=== PATIENT | male | born 1975 | race African-American/Black ===

== ENCOUNTER 2019-03-17 07:46 | Observation (INO) | payer SELFPAY ==
[2019-03-17] MEDS ORDERED: ENOXAPARIN 100 MG/ML SYR SQ ONE (08:30)
[2019-03-17] MEDS ORDERED: ASPIRIN 81 MG CHEWABLE TABLET ONE (08:30)
[2019-03-17] MEDS ORDERED: FAMOTIDINE 20 MG/2 ML VIAL IV ONE (08:30)
[2019-03-17] MEDS ORDERED: NA CHLORIDE 0.9% 1,000 ML ONE (08:30)
[2019-03-17] MEDS ORDERED: LISINOPRIL 20 MG TAB ONE (08:30)
--- NOTE | 2019-03-17 08:34 | EDPHYS ---
Physician Documentation [facility] Name: Weston Arce Age: 43 yrs Sex: Male : 1975 Arrival Date: 03/17/2019 Time: 07:47 Bed 13 Private MD: ED Physician Ander Casillas HPI: 03/17 08:25 This 43 yrs old Black Male presents to ER via Ambulatory with complaints of Chest Pain. raghu 08:25 The patient or guardian reports chest pain that is located primarily in the anterior raghu chest wall, left. Onset: 2 day(s) ago. The pain does not radiate. Associated signs and symptoms: Pertinent positives: shortness of breath. The chest pain is described as a pressure. Severity of pain: At its worst the pain was mild in the emergency department the pain has resolved. The patient has experienced similar episodes in the past, several times. Historical: - Allergies: 08:05 SHELLFISH; jl7 - Home Meds: 08:05 None [Active]; jl7 - PMHx: 08:05 Hypertension; jl7 - Immunization history:: Adult Immunizations not up to date. - Social history:: Smoking status: Patient uses tobacco products, cigars, Patient uses alcohol, on a daily basis. 3-[address], marijuana. - Ebola Screening: : No symptoms or risks identified at this time. - Family history:: not pertinent. ROS: 08:25 Constitutional: Negative for fever, chills, and weight loss, Eyes: Negative for injury, raghu pain, redness, and discharge, ENT: Negative for injury, pain, and discharge, Neck: Negative for injury, pain, and swelling, Abdomen/GI: Negative for abdominal pain, nausea, vomiting, diarrhea, and constipation, Back: Negative for injury and pain, : Negative for injury, bleeding, discharge, and swelling, MS/Extremity: Negative for injury and deformity, Skin: Negative for injury, rash, and discoloration, Neuro: Negative for headache, weakness, numbness, tingling, and seizure, Psych: Negative for depression, anxiety, suicide ideation, homicidal ideation, and hallucinations, Allergy/Immunology: Negative for hives, rash, and allergies, Endocrine: Negative for neck swelling, polydipsia, polyuria, polyphagia, and marked weight changes, Hematologic/Lymphatic: Negative for swollen nodes, abnormal bleeding, and unusual bruising. 08:25 Cardiovascular: Positive for chest pain. 08:25 Respiratory: Positive for shortness of breath, on exertion. Exam: 08:25 Constitutional: This is a well developed, well nourished patient who is awake, alert, raghu and in no acute distress. Head/Face: Normocephalic, atraumatic. Eyes: Pupils equal round and reactive to light, extra-ocular motions intact. Lids and lashes normal. Conjunctiva and sclera are non-icteric and not injected. Cornea within normal limits. Periorbital areas with no swelling, redness, or edema. ENT: Nares patent. No nasal discharge, no septal abnormalities noted. Tympanic membranes are normal and external auditory canals are clear. Oropharynx with no redness, swelling, or masses, exudates, or evidence of obstruction, uvula midline. Mucous membranes moist. Neck: Trachea midline, no thyromegaly or masses palpated, and no cervical lymphadenopathy. Supple, full range of motion without nuchal rigidity, or vertebral point tenderness. No Meningismus. Chest/axilla: Normal chest wall appearance and motion. Nontender with no deformity. No lesions are appreciated. Cardiovascular: Regular rate and rhythm with a normal S1 and S2. No gallops, murmurs, or rubs. Normal PMI, no JVD. No pulse deficits. Respiratory: Lungs have equal breath sounds bilaterally, clear to auscultation and percussion. No rales, rhonchi or wheezes noted. No increased work of breathing, no retractions or nasal flaring. Abdomen/GI: Soft, non-tender, with normal bowel sounds. No distension or tympany. No guarding or rebound. No evidence of tenderness throughout. Back: No spinal tenderness. No costovertebral tenderness. Full range of motion. Male : Normal genitalia with no discharge or lesions. Skin: Warm, dry with normal turgor. Normal color with no rashes, no lesions, and no evidence of cellulitis. MS/ Extremity: Pulses equal, no cyanosis. Neurovascular intact. Full, normal range of motion. Neuro: Awake and alert, GCS 15, oriented to person, place, time, and situation. Cranial nerves II-XII grossly intact. Motor strength 5/5 in all extremities. Sensory grossly intact. Cerebellar exam normal. Normal gait. Psych: Awake, alert, with orientation to person, place and time. Behavior, mood, and affect are within normal limits. Vital Signs: 07:50 BP 177 / 105; Pulse 52; Resp 17 S; Pulse Ox 100% on R/A; Pain 0/10; jl7 08:15 BP 164 / 94; Pulse 50; Resp 15 S; Pulse Ox 100% on R/A; jl7 08:26 Weight 98.88 kg (M); jl7 09:00 BP 153 / 88; Pulse 46; Resp 16 S; Pulse Ox 100% on R/A; jl7 10:12 BP 133 / 83; Pulse 48; Resp 16 S; Pulse Ox 100% on R/A; jl7 11:00 BP 128 / 85; Pulse 47; Resp 16 S; Pulse Ox 100% on R/A; jl7 11:45 BP 140 / 94; Pulse 44; Resp 16 S; Pulse Ox 100% on R/A; jl7 12:46 BP 156 / 97; Pulse 50; Resp 16 S; Pulse Ox 100% on R/A; jl7 MDM: 07:50 Patient medically screened. [facility] 08:29 Data reviewed: vital signs, nurses notes, lab test result(s), EKG, radiologic studies, raghu plain films. 03/17 08:02 Order name: Basic Metabolic Panel; Complete Time: 09:54 [facility] 03/17 08:02 Order name: CBC with Diff raghu 03/17 08:02 Order name: LFT's; Complete Time: 09:54 [facility] 03/17 08:02 Order name: Magnesium; Complete Time: 09:54 [facility] 03/17 08:02 Order name: NT PRO-BNP; Complete Time: 09:54 [facility] 03/17 08:02 Order name: PT-INR; Complete Time: 09:35 [facility] 03/17 08:02 Order name: Troponin (emerg Dept Use Only); Complete Time: 09:54 [facility] 03/17 08:02 Order name: XRAY Chest (1 view); Complete Time: 09:35 [facility] 03/17 08:20 Order name: Lipase; Complete Time: 09:40 [facility] 03/17 08:02 Order name: EKG; Complete Time: 08:04 [facility] 03/17 08:02 Order name: Cardiac monitoring; Complete Time: 08:05 [facility] 03/17 08:02 Order name: EKG - Nurse/Tech; Complete Time: 08:04 raghu 03/17 08:02 Order name: IV Saline Lock; Complete Time: 08:21 raghu 03/17 08:02 Order name: Labs collected and sent; Complete Time: 08:21 raghu 03/17 08:02 Order name: O2 Per Protocol; Complete Time: 08:05 raghu 03/17 08:02 Order name: O2 Sat Monitoring; Complete Time: 08:05 raghu 03/17 09:01 Order name: Labs - recollect needed; Complete Time: 09:12 03/17 11:39 Order name: Diet Heart Healthy; Complete Time: 11:39 jl7 Administered Medications: 08:35 Drug: NS 0.9% 1000 ml Route: IV; Rate: 125 ml/hr; Site: right antecubital; jl7 13:39 Follow up: IV Status: Infusion continued upon admission jl7 08:41 Drug: Pepcid 20 mg Route: IVP; Site: right antecubital; jl7 09:12 Follow up: Response: No adverse reaction jl7 08:43 Not Given (Pt took 325 mg prior to arrival): Aspirin Chewable Tablet 324 mg PO once; 81 jl7 mg tablets x 4 08:43 Drug: Lisinopril 20 mg Route: PO; jl7 09:14 Follow up: Response: No adverse reaction jl7 08:43 Drug: Lovenox 1 mg/kg Route: Sub-Q; Site: abdomen; jl7 09:13 Follow up: Response: No adverse reaction jl7 09:35 Drug: Maxzide (37.5 mg-25 mg) 1 caps Route: PO; jl7 10:12 Follow up: Response: No adverse reaction jl7 Disposition: 03/17/19 08:33 Hospitalization ordered by Amol Gunn for Observation. Preliminary diagnosis are Essential (primary) hypertension, Chest pain, unspecified, Cardiomegaly, Bradycardia, unspecified. - Bed requested for Telemetry/MedSurg (observation). - Status is Observation. jl7 - Condition is Stable. - Problem is new. - Symptoms have improved. UTI on Admission? No Signatures: Dispatcher [employer] EDAnder Durbin MD MD cha Leal, Jahala RN RN jl7 Radha Almaraz gm Corrections: (The following items were deleted from the chart) 08:36 08:33 Hospitalization Ordered by Keanu Marin MD for Observation. Preliminary diagnosis raghu is Essential (primary) hypertension; Chest pain, unspecified. Bed requested for Telemetry/MedSurg (observation). Status is Observation. Condition is Stable. Problem is new. Symptoms have improved. UTI on Admission? No. raghu 08:37 08:36 03/17/2019 08:33 Hospitalization Ordered by Keanu Marin MD for Observation. raghu Preliminary diagnosis is Essential (primary) hypertension; Chest pain, unspecified; Cardiomegaly. Bed requested for Telemetry/MedSurg (observation). Status is Observation. Condition is Stable. Problem is new. Symptoms have improved. UTI on Admission? No. [facility] 08:46 08:37 03/17/2019 08:33 Hospitalization Ordered by Keanu Marin MD for Observation. raghu Preliminary diagnosis is Essential (primary) hypertension; Chest pain, unspecified; Cardiomegaly; Bradycardia, unspecified. Bed requested for Telemetry/MedSurg (observation). Status is Observation. Condition is Stable. Problem is new. Symptoms have improved. UTI on Admission? No. raghu 12:38 08:46 03/17/2019 08:33 Hospitalization Ordered by Amol Gunn for Observation. Preliminary diagnosis is Essential (primary) hypertension; Chest pain, unspecified; Cardiomegaly; Bradycardia, unspecified. Bed requested for Telemetry/MedSurg (observation). Status is Observation. Condition is Stable. Problem is new. Symptoms have improved. UTI on Admission? No. raghu 13:40 12:38 03/17/2019 08:33 Hospitalization Ordered by Amol Gunn for Observation. jl7 Preliminary diagnosis is Essential (primary) hypertension; Chest pain, unspecified; Cardiomegaly; Bradycardia, unspecified. Bed requested for Telemetry/MedSurg (observation). Status is Observation. Condition is Stable. Problem is new. Symptoms have improved. UTI on Admission? No. gm
--- NOTE | 2019-03-17 08:34 | ER ---
Nurse's Notes [facility] Name: Weston Arce Age: 43 yrs Sex: Male : 1975 Arrival Date: 03/17/2019 Time: 07:47 Bed 13 Private MD: Diagnosis: Essential (primary) hypertension;Chest pain, unspecified;Cardiomegaly;Bradycardia, unspecified Presentation: 03/17 08:01 Presenting complaint: Patient states: Intermittent chest pressure/cramping for the past jl7 2 months, SOB this morning, denies nausea. Transition of care: patient was not received from another setting of care. Onset of symptoms was March 17, 2019. Risk Assessment: Do you want to hurt yourself or someone else? Patient reports no desire to harm self or others. Initial Sepsis Screen: Does the patient meet any 2 criteria? No. Patient's initial sepsis screen is negative. Does the patient have a suspected source of infection? No. Patient's initial sepsis screen is negative. Care prior to arrival: None. 08:01 Method Of Arrival: Ambulatory jl7 08:01 Acuity: GISSELLE 3 jl7 Triage Assessment: 08:05 General: Appears in no apparent distress. uncomfortable, Behavior is calm, cooperative, jl7 appropriate for age. Pain: Complains of pain in left breast Pain does not radiate. Pain currently is 0 out of 10 on a pain scale. at worst was 7 out of 10 on a pain scale. Quality of pain is described as crampy, pressure, Pain began 2 months ago. Neuro: Level of Consciousness is awake, alert, obeys commands, Oriented to person, place, time, situation. Cardiovascular: Patient's skin is warm and dry. Rhythm is sinus bradycardia. Respiratory: Airway is patent Respiratory effort is even, unlabored, Respiratory pattern is regular, symmetrical. Derm: Skin is dry, Skin is normal, Skin temperature is warm. Musculoskeletal: No signs and/or symptoms reported regarding the musculoskeletal system. Historical: - Allergies: 08:05 SHELLFISH; jl7 - Home Meds: 08:05 None [Active]; jl7 - PMHx: 08:05 Hypertension; jl7 - Immunization history:: Adult Immunizations not up to date. - Social history:: Smoking status: Patient uses tobacco products, cigars, Patient uses alcohol, on a daily basis. 3-[address], marijuana. - Ebola Screening: : No symptoms or risks identified at this time. - Family history:: not pertinent. Screenin:08 Abuse screen: Denies threats or abuse. Denies injuries from another. Nutritional jl screening: No deficits noted. Tuberculosis screening: No symptoms or risk factors identified. Fall Risk IV access (20 points). Total Herrera Fall Scale indicates No Risk (0-24 pts). Assessment: 08:00 General: See triage assessment. [facility] 08:08 Reassessment: Dr. Casillas at bedside. jl7 09:00 Reassessment: Patient appears in no apparent distress at this time. No changes from [facility] previously documented assessment. Patient and/or family updated on plan of care and expected duration. Pain level reassessed. Patient is alert, oriented x 3, equal unlabored respirations, skin warm/dry/pink. 10:00 Reassessment: Patient appears in no apparent distress at this time. Patient and/or jl7 family updated on plan of care and expected duration. Pain level reassessed. Patient is alert, oriented x 3, equal unlabored respirations, skin warm/dry/pink. 11:00 Reassessment: Patient appears in no apparent distress at this time. Patient and/or jl7 family updated on plan of care and expected duration. Pain level reassessed. Patient is alert, oriented x 3, equal unlabored respirations, skin warm/dry/pink. Patient denies pain at this time. 11:41 Reassessment: Diet tray ordered. jl7 12:30 Reassessment: Patient appears in no apparent distress at this time. Patient and/or jl7 family updated on plan of care and expected duration. Pain level reassessed. Patient is alert, oriented x 3, equal unlabored respirations, skin warm/dry/pink. 12:58 Reassessment: attempted to call report, nurse unavailable. jl7 Vital Signs: 07:50 BP 177 / 105; Pulse 52; Resp 17 S; Pulse Ox 100% on R/A; Pain 0/10; 7 08:15 BP 164 / 94; Pulse 50; Resp 15 S; Pulse Ox 100% on R/A; jl7 08:26 Weight 98.88 kg (M); jl7 09:00 BP 153 / 88; Pulse 46; Resp 16 S; Pulse Ox 100% on R/A; jl7 10:12 BP 133 / 83; Pulse 48; Resp 16 S; Pulse Ox 100% on R/A; jl7 11:00 BP 128 / 85; Pulse 47; Resp 16 S; Pulse Ox 100% on R/A; jl7 11:45 BP 140 / 94; Pulse 44; Resp 16 S; Pulse Ox 100% on R/A; jl7 12:46 BP 156 / 97; Pulse 50; Resp 16 S; Pulse Ox 100% on R/A; jl7 ED Course: 07:47 Patient arrived in ED. as 07:49 Garrett Sanford, KARI is Primary Nurse. jl7 07:50 Ander Casillas MD is Attending Physician. raghu 07:50 Arm band placed on right wrist. jl7 08:00 EKG done, by ED staff, reviewed by Ander Casillas MD. dh3 08:04 Triage completed. jl7 08:08 Patient maintains SpO2 saturation greater than 95% on room air. jl7 08:08 Patient has correct armband on for positive identification. Placed in gown. Bed in low jl7 position. Call light in reach. Side rails up X 1. night monitor on. Pulse ox on. NIBP on. Warm blanket given. 08:15 Initial lab(s) drawn, by sc, sent to lab. Missed attempt(s): 20 gauge in right forearm. dh3 Bleeding controlled, band aid applied, catheter tip intact. 08:17 Inserted saline lock: 20 gauge in right antecubital area, using aseptic technique. dh3 08:32 Keanu Marin MD is Hospitalizing Provider. raghu 08:36 XRAY Chest (1 view) In Process Unspecified. EDMS 08:44 Hospitalizing Provider role handed off by Keanu Marin MD raghu 08:44 Amol Gunn is Hospitalizing Provider. raghu 13:39 No provider procedures requiring assistance completed. Patient admitted, IV remains in jl7 place. intact, No redness/swelling at site. Administered Medications: 08:35 Drug: NS 0.9% 1000 ml Route: IV; Rate: 125 ml/hr; Site: right antecubital; jl7 13:39 Follow up: IV Status: Infusion continued upon admission jl7 08:41 Drug: Pepcid 20 mg Route: IVP; Site: right antecubital; jl7 09:12 Follow up: Response: No adverse reaction jl7 08:43 Not Given (Pt took 325 mg prior to arrival): Aspirin Chewable Tablet 324 mg PO once; 81 jl7 mg tablets x 4 08:43 Drug: Lisinopril 20 mg Route: PO; jl7 09:14 Follow up: Response: No adverse reaction jl7 08:43 Drug: Lovenox 1 mg/kg Route: Sub-Q; Site: abdomen; jl7 09:13 Follow up: Response: No adverse reaction jl7 09:35 Drug: Maxzide (37.5 mg-25 mg) 1 caps Route: PO; jl7 10:12 Follow up: Response: No adverse reaction jl7 Outcome: 08:33 Decision to Hospitalize by Provider. raghu 13:39 Admitted to Tele accompanied by tech, family with patient, via wheelchair, room 212, jl7 with chart, Report called to KARI Rojas 13:39 Condition: stable 13:39 Discharge instructions given to patient, family, Instructed on the need for admit, Demonstrated understanding of instructions. 13:40 Patient left the ED. jl7 Signatures: Dispatcher [employer] EDAnder Durbin MD MD cha Martinez, Amelia as Leal, Jahala RN RN jl7 Leatha Newton 3
--- NOTE | 2019-03-17 08:52 | RAD REPORT ---
EXAM DESCRIPTION: RAD - Chest Single View - 03/17/2019 8:35 am CLINICAL HISTORY: COUGH Chest pain. COMPARISON: No comparisons FINDINGS: Portable technique limits examination quality. The lungs are grossly clear. The heart is normal in size. No displaced fractures. IMPRESSION: No acute intrathoracic process suspected.
[2019-03-17 08:54] LABS: Absolute Lymphocytes (CBC) 2.1 K/uL (0.7-4.9); Basophils % 1.3 % (0-1.3); Hematocrit 39.8 % (39.6-49.0); Lymphocytes % 27.6 % (15.3-44.8); MPV 9.2 fL (7.6-11.3); RBC Red Blood Cell Count 4.61 M/uL (4.33-5.43)
[2019-03-17] MEDS ORDERED: MAXZIDE (HCTZ 25/TRIAMTERENE 37.5MG) TAB PO ONE (09:00)
[2019-03-17 09:03] LABS: Protime INR 1.21
--- NOTE | 2019-03-17 09:31 | EKG ---
Test Date: 2019-03-17 Test Time: 07:56:52 Psychiatry Teacher: MELINA MEASUREMENT RESULTS: Intervals: Rate: 52 SD: 188 QRSD: 108 QT: 438 QTc: 407 [place]: P: 43 SD: 188 QRS: 32 T: 12 INTERPRETIVE STATEMENTS: Sinus bradycardia Otherwise normal ECG No previous ECG available for comparison Electronically Signed On 03-17-19 09:30:17 CDT by Dylan Aguirre
[2019-03-17 09:48] LABS: ALT/SGPT 25 U/L (12-78); AST/SGOT 15 U/L (15-37); Albumin 3.5 g/dL (3.4-5.0); Alkaline Phosphatase 51 U/L (45-117); BUN Blood Urea Nitrogen 18 mg/dL (7-18); Bicarbonate 24 mmol/L (21-32); Bilirubin Direct 0.2 mg/dL (0-0.2); Glucose Level 98 mg/dL (74-106); NT PRO-BNP 67 pg/mL (<125); Potassium 4.1 mmol/L (3.5-5.1); Protein, Total 6.9 g/dL (6.4-8.2); Sodium Level 141 mmol/L (136-145); Troponin (Emerg Dept Use Only) < 0.02 ng/mL (0.0-0.045)
--- NOTE | 2019-03-17 11:18 | P.HP ---
Certification for Inpatient Patient admitted to: Observation With expected LOS: <2 Midnights Patient will require the following post-hospital care: None Practitioner: I am a practitioner with admitting privileges, knowledge of patient current condition, hospital course, and medical plan of care. Services: Services provided to patient in accordance with Admission requirements found in Title 42 Section 412.3 of the Code of Federal Regulations Patient History Date of Service: 03/19/19 Reason for admission: Chest pain History of Present Illness: 43-year-old man with a history of hypertension, presented emergency department with a complaint of intermittent chest pain which has been present for about 3 months, that is getting progressively frequent and worse. He stated the chest pain is located on the left anterior chest, nonradiating, no associated nausea or vomiting or diaphoresis. Reports occasional palpitation. He stated chest pain is worse with exertion and chest movement. No alleviating factors. He has a history of hypertension but had been noncompliant with his anti- hypertensives for several years. He had an episode of chest this morning, this time associated with shortness of breath. In the ED, initial troponin is negative, EKG demonstrates sinus bradycardia, no ischemic changes. Chest x-ray demonstrate no acute disease. Patient is placed under observation for ACS rule out. Allergies shellfish derived Allergy (Verified 03/17/19 08:45) UNK Home medications list reviewed: Yes (None) Home Medications: Amlodipine [Norvasc*] 10 mg PO DAILY 30 Days #30 tab 03/18/19 - Past Medical/Surgical History -: Hypertension Past Surgical History: Patient denies surgical history - Family History Family History: Reviewed- Non-Contributory (Mother is healthy, maternal Cousin and aunt have diabetes.) - Family History Father History Unknown: Yes Mother History Unknown: Yes - Social History Smoking Status: Current some day smoker (Smoke cigar) Alcohol use: Yes CD- Drugs: No Place of Residence: Home Review of Systems Other: General: No fever, no malaise, no unintentional weight loss. Eyes: No eye discharge, Respiratory: No cough. CVS: No lightheadedness. GI: No abdominal pain, no nausea no vomit, no constipation, no diarrhea. Genitourinary: No dysuria, no urinary frequency, no incontinence, no hematuria. Musculoskeletal: No joint pains, or joint swelling, no gait instability. Neurology: No headache, no asymmetric, weakness, no problem with swallowing. Except as documented, all other systems reviewed and negative. Physical Examination - Physical Exam General: Alert, In no apparent distress, Oriented x3 HEENT: Atraumatic, Normocephalic, PERRLA, Mucous membr. moist/pink Neck: Supple, JVD not distended, No Thyromegaly Respiratory: Clear to auscultation bilaterally, Normal air movement Cardiovascular: No edema, Normal pulses, Regular rate/rhythm, Normal S1 S2, No murmurs Capillary refill: <2 Seconds Gastrointestinal: Normal bowel sounds, Soft and benign, Non-distended, No tenderness Musculoskeletal: No clubbing, No swelling Integumentary: No rashes, No breakdown Neurological: Normal strength at 5/5 x4 extr, Cranial nerves 3-12 intact, Normal affect Lymphatics: No axilla or inguinal lymphadenopathy - Studies Laboratory Data (last 24 hrs) 03/17/19 : Lipase 123 03/17/19 09:05: Sodium 141, Potassium 4.1, BUN 18, Creatinine 1.01, Glucose 98, Magnesium 2.0, Total Bilirubin 1.0, AST 15, ALT 25, Alkaline Phosphatase 51 03/17/19 08:15: PT 14.2 H, INR 1.21 03/17/19 08:15: WBC 7.6, Hgb 13.4 L, Hct 39.8, Plt Count 201 Assessment and Plan - Problems (Diagnosis) (1) Chest pain Status: Acute (2) Uncontrolled hypertension Status: Acute - Plan Place under observation Trend troponin Obtain echocardiogram Amlodipine for hypertension. ASA NTG prn. Check lipid profile Check TSH. - Advance Directives Does patient have a Living Will: No Does patient have a Durable POA for Healthcare: No
[2019-03-17 13:43] LABS: Blood Morphology Comment NOT SEEN (NOT SEEN); Platelet Estimate ADEQ; Urine White Blood Cell Casts OK
[2019-03-17 14:42] VITALS: BMI 30.2
[2019-03-17] MEDS ORDERED: MORPHINE 2 MG/ML SYR IV PRN (15:56)
[2019-03-17] MEDS ORDERED: NITROGLYCERIN 0.4 MG/TAB SL PRN (15:56)
[2019-03-17] MEDS ORDERED: INFLUENZA VACCINE (for 3y+) 0.5 ML DOSE IMVAC ONE (18:00)
[2019-03-17 21:22] VITALS: O2SAT 98
--- NOTE | 2019-03-18 08:42 | P.DS ---
Admission Date: 03/17/19 Discharge Date: 03/19/19 Disposition: ROUTINE DISCHARGE Discharge Condition: GOOD Reason for Admission: Chest pain - Problems (1) Chest pain Status: Acute (2) Uncontrolled hypertension Status: Acute Brief History of Present Illness: 43-year-old man with a history of hypertension, presented to the emergency department with a complaint of intermittent chest pain which has been present for about 3 months, that was getting progressively frequent and worse. Chest pain located on the left anterior chest, nonradiating, no associated nausea or vomiting or diaphoresis. Reported occasional palpitation. States chest pain is worse with exertion and chest movement. No alleviating factors. He has a history of hypertension but had been noncompliant with his anti- hypertensives for several years. He had an episode of chest on the morning of admission, this time associated with shortness of breath. In the ED, initial troponin was negative, EKG demonstrated sinus bradycardia, no ischemic changes. Chest x-ray demonstrated no acute disease. Patient was placed under observation for ACS rule out. Hospital Course: Troponin x3 was negative. He was asymptomatic during the hospital stay. Patient was started on Norvasc to control his blood pressure. He was normotensive with the Norvasc.. Echocardiogram was performed and normal EF and dilated left atrium reported. Patient has been asymptomatic, no chest pain, acute coronary syndrome has been ruled out. Lipid profile within normal limit. He is deemed clinically stable for discharge. He is prescribed Norvasc for hypertension and informed to find PCP who will manage his hypertension. Smoking cessation counseling also provided. Vital Signs/Physical Exam: Temp Pulse Resp BP Pulse Ox 98.3 F 52 20 132/89 98 03/18/19 04:00 03/18/19 04:00 03/18/19 04:00 03/18/19 04:00 03/18/19 04:00 General: Alert, In no apparent distress, Oriented x3 HEENT: Mucous membr. moist/pink Neck: Supple, JVD not distended Respiratory: Clear to auscultation bilaterally, Normal air movement Cardiovascular: No edema, Normal pulses, Regular rate/rhythm, Normal S1 S2, No murmurs Capillary refill: <2 Seconds Gastrointestinal: Normal bowel sounds, Soft and benign, Non-distended, No tenderness Musculoskeletal: No clubbing, No swelling Integumentary: No rashes Neurological: Normal gait, Normal strength at 5/5 x4 extr, Cranial nerves 3-12 intact Laboratory Data at Discharge: WBC 7.6 K/uL (4.3-10.9) 03/17/19 08:15 Hgb 13.4 g/dL (13.6-17.9) L 03/17/19 08:15 Hct 39.8 % (39.6-49.0) 03/17/19 08:15 Plt Count 201 K/uL (152-406) 03/17/19 08:15 PT 14.2 SECONDS (9.5-12.5) H 03/17/19 08:15 INR 1.21 03/17/19 08:15 Sodium 141 mmol/L (136-145) 03/17/19 09:05 Potassium 4.1 mmol/L (3.5-5.1) 03/17/19 09:05 BUN 18 mg/dL (7-18) 03/17/19 09:05 Creatinine 1.01 mg/dL (0.55-1.3) 03/17/19 09:05 Glucose 98 mg/dL (74-106) 03/17/19 09:05 Magnesium 2.0 mg/dL (1.8-2.4) 03/17/19 09:05 Total Bilirubin 1.0 mg/dL (0.2-1.0) 03/17/19 09:05 AST 15 U/L (15-37) 03/17/19 09:05 ALT 25 U/L (12-78) 03/17/19 09:05 Alkaline Phosphatase 51 U/L (45-117) 03/17/19 09:05 Troponin I < 0.02 ng/mL (0.0-0.045) 03/18/19 03:53 Triglycerides 122 mg/dL (<150) 03/18/19 03:53 Cholesterol 167 mg/dL (<200) 03/18/19 03:53 HDL Cholesterol 54 mg/dL (40-60) 03/18/19 03:53 Cholesterol/HDL Ratio 3.09 03/18/19 03:53 Lipase 123 U/L (73-393) 03/17/19 Unknown Home Medications: Amlodipine [Norvasc*] 10 mg PO DAILY 30 Days #30 tab 03/18/19 New Medications: Amlodipine [Norvasc*] 10 mg PO DAILY 30 Days #30 tab Patient Discharge Instructions: Need to find a PCP to manage your blood pressure. Diet: AHA Activity: Ad dave Time spent managing pt's care (in minutes): 25
[2019-03-18] MEDS ORDERED: ENOXAPARIN 40 MG/0.4 ML SQ SCH (09:00)
[2019-03-18] MEDS ORDERED: AMLODIPINE 10 MG TAB PO SCH (09:00)
[2019-03-18] MEDS ORDERED: ASPIRIN EC 81 MG TAB PO SCH (09:00)
--- NOTE | 2019-03-18 10:55 | ECHO ---
HEIGHT: 5 ft 11 in WEIGHT: 217 lb 0 oz DATE OF STUDY: 03/18/[address]: artie webb 2-DIMENSIONAL: YES M.MODE: YES DOPPLER: YES COLOR FLOW: YES TDS: NO PORTABLE: NO DEFINITY: NO BUBBLE STUDY: NO DIAGNOSIS: CHEST PAIN CARDIAC HISTORY: CATHERIZATION: NO SURGERY: NO PROSTHETIC VALVE: NO PACEMAKER: NO MEASUREMENTS (cm) DIASTOLIC (NORMALS) SYSTOLIC (NORMALS) IVSd 1.2 (0.6-1.2) LA Diam 4.3 (1.9-4.0) LVEF 67% LVIDd 4.6 (3.5-5.7) LVIDs 2.9 (2.0-3.5) %FS 37% LVPWd 1.3 (0.6-1.2) Ao Diam 3.1 (2.0-3.7) 2 DIMENSIONAL ASSESSMENT: RIGHT ATRIUM: NORMAL LEFT ATRIUM: DILATED RIGHT VENTRICLE: NORMAL LEFT VENTRICLE: NORMAL TRICUSPID VALVE: NORMAL MITRAL VALVE: NORMAL PULMONIC VALVE: NORMAL AORTIC VALVE: NORMAL PERICARDIAL EFFUSION: NONE AORTIC ROOT: NORMAL LEFT VENTRICULAR WALL MOTION: NORMAL DOPPLER/COLOR FLOW: MILD MITRAL REGURGITATION. COMMENTS: NORMAL LEFT VENTRICULAR EJECTION FRACTION. DILATED LEFT ATRIUM. MILD MITRAL REGURGITATION. TECHNOLOGIST: Beena SHERIDAN
[2019-03-18 15:13] VITALS: BP 156/88; TEMP 97.9
== END 2019-03-18 12:27 | disposition home or self-care (01) ==
LOC: ER 07:46 → ERHOLD 11:22 → 2ND 13:36
PROVIDERS: ADMIT Internal Medicine; ATTEND Internal Medicine
DX: R07.9 Chest pain, unspecified (principal); I10 Essential (primary) hypertension; Z91.013 Allergy to seafood; F17.200 Nicotine dependence, unspecified, uncomplicated
CPT/HCPCS: 96361; 93005; 93306; 85025; 80048; 36415; 83735; 85610; 80061; 80076; 84484 ×5; 83690; 83880; 71045; 94760; 96372; 96374; 99285; J1650 ×2; J7030; G0378 ×3

== ENCOUNTER 2021-03-09 19:36 | Emergency (ER) | payer SELFPAY ==
--- NOTE | 2021-03-09 20:54 | ER ---
Nurse's Notes [facility] Name: Weston Arce Age: 45 yrs Sex: Male : 1975 Arrival Date: 03/09/2021 Time: 19:38 Bed Waiting Private MD: Diagnosis: Presentation: 03/09 19:46 Chief complaint: Patient states: abd pain. Coronavirus screen: Vaccine status: Patient df1 reports being unvaccinated. Client denies travel out of the [place] in the last 14 days. The client denies any previous COVID testing. Ebola Screen: Patient negative for fever greater than or equal to 101.5 degrees Fahrenheit, and additional compatible Ebola Virus Disease symptoms. Initial Sepsis Screen: Does the patient meet any 2 criteria? No. Patient's initial sepsis screen is negative. Risk Assessment: Do you want to hurt yourself or someone else? Patient reports no desire to harm self or others. Onset of symptoms was March 09, 2021. 19:46 Method Of Arrival: Wheelchair df1 19:46 Acuity: GISSELLE 3 df1 19:51 Note Pt states intermittent RUQ pain for 1 year but today pain increased after eating. df1 Denies N/V/D. Last BM today. 20:38 Note Pt not present in wait room when name called for room placement. df1 Triage Assessment: 19:50 General: Appears uncomfortable, Behavior is calm, cooperative. Pain: Complains of pain df1 in abdomen. GI: Reports upper abdominal pain, Patient currently denies diarrhea, nausea, vomiting. Historical: - Allergies: 19:49 SHELLFISH; df1 - Home Meds: 19:49 None [Active]; df1 - PMHx: 19:49 Hypertension; df1 - PSHx: 19:49 None; df1 - Immunization history:: Adult Immunizations up to date. - Social history:: Patient uses street drugs, marijuana, Cigars. Vital Signs: 19:46 BP 139 / 94; Pulse 83; Resp 18; Temp 97.9; Pulse Ox 99% on R/A; Weight 99.79 kg; Height df1 5 ft. 11 in. (180.34 cm); Pain 8/10; 19:46 Body Mass Index 30.68 (99.79 kg, 180.34 cm) df1 ED Course: 19:38 Patient arrived in ED. ja2 19:49 Triage completed. df1 20:53 Neno Astudillo MD is Attending Physician. df1 Administered Medications: No medications were administered Outcome: :53 Patient left the ED. df1 Signatures: Farzana Hair Dawn df1
[2021-03-09 21:11] VITALS: BP 139/94; TEMP 97.9; O2SAT 99
== END 2021-03-09 20:53 | disposition left against medical advice (07) ==
LOC: ER 19:36
DX: Z53.21 Procedure and treatment not carried out due to patient leaving prior to being seen by health care provider (principal)
CPT/HCPCS: 99281

== ENCOUNTER 2021-08-02 08:34 | Emergency (ER) | payer SELFPAY ==
[2021-08-02] MEDS ORDERED: NA CHLORIDE 0.9% 1,000 ML ONE (09:05)
[2021-08-02] MEDS ORDERED: ONDANSETRON 4 MG/2 ML VIAL ONE (09:05)
[2021-08-02 09:18] LABS: Absolute Lymphocytes (CBC) 2.1 K/uL (0.7-4.9); Hematocrit 40.4 % (39.6-49.0); Lymphocytes % 20.3 % (15.3-44.8); MPV 7.2 fL (7.6-11.3); RBC Red Blood Cell Count 4.71 M/uL (4.33-5.43)
--- NOTE | 2021-08-02 09:43 | RAD REPORT ---
EXAM DESCRIPTION: US - Abdomen Exam Limited - 08/02/2021 9:35 am CLINICAL HISTORY: ABD PAIN COMPARISON: No comparisons FINDINGS: Minimal amount of sludge is seen moving within the lumen of the normal size gallbladder. N o gallstones confirmed. There is no wall thickening or pericholecystic fluid. No common duct stone or biliary tree dilatation identified. IMPRESSION: Small amount of sludge but no gallstones in the lumen of the gallbladder. No other gallbladder or biliary tree finding.
--- NOTE | 2021-08-02 09:49 | RAD REPORT ---
EXAM DESCRIPTION: CT - Abdomen Pelvis Wo Contrast - 08/02/2021 9:30 am CLINICAL HISTORY: ABD PAIN COMPARISON: No comparisons TECHNIQUE: Axial [address] imaging of the abdomen and pelvis was performed without IV contrast. No IV contrast was given because of allergy, abnormal renal function, patient refusal or physician re quest. No oral contrast administered. All CT scans are performed using dose optimization technique as appropriate and may include automated exposure control or mA/KV adjustment according to patient size. FINDINGS: No suspicious findings in the lung bases. The liver, spleen and pancreas show no suspicious findings on non-contrast imaging. Gallbladder and b iliary tree are also without suspicious finding. No hydronephrosis or suspicious renal mass. No significant adrenal finding. Isodense renal masses an d pyelonephritis cannot be excluded in the absence of IV contrast. The urinary bladder is without sig nificant finding. No gastric dilatation or wall thickening. Gamez of the antrum are within normal limits. Duodenal bulb and proximal duodenal gamez appear thickened and edematous. No focal ulceration identified. Mild con gestion or edema seen in the fat adjacent to the proximal duodenum. Remainder of the small bowel is unremarkable. No appendicitis findings. No acute colon finding. No f ree air, free fluid or pneumatosis. No hernia, mass or bulky lymphadenopathy. No suspicious bony findings. Arterial tree calcifications are present. IMPRESSION: Wall thickening of the pylorus and proximal duodenum with adjacent edema in the fatty ti ssues. Correlation is needed with any clinical findings that would support duodenitis or possibly duo denal ulceration. The stomach and pancreas do not appear to be involved by the duodenal process. Remainder the exam is unremarkable. Full assessment is limited is the absence of IV contrast.
[2021-08-02 10:04] LABS: ALT/SGPT 25 U/L (12-78); Albumin 4.2 g/dL (3.4-5.0); Alkaline Phosphatase 55 U/L (45-117); BUN Blood Urea Nitrogen 10 mg/dL (7-18); Bicarbonate 24 mmol/L (21-32); Bilirubin Direct 0.2 mg/dL (0-0.2); Bilirubin Total 1.2 mg/dL (0.2-1.0); Glucose Level 92 mg/dL (74-106); Lipase 58 U/L (73-393); Sodium Level 135 mmol/L (136-145)
[2021-08-02 10:17] LABS: AST/SGOT 19 U/L (15-37); Potassium 3.7 mmol/L (3.5-5.1)
--- NOTE | 2021-08-02 10:43 | EDPHYS ---
Physician Documentation [facility] Name: Weston Arce Age: 45 yrs Sex: Male : 1975 Arrival Date: 08/02/2021 Time: 08:37 Bed 15 Private MD: ED Physician Keyshawn Vega HPI: 08/02 08:57 This 45 yrs old Black Male presents to ER via Ambulatory with complaints of Abdominal jmm Pain. 08:57 The patient presents with abdominal pain. Onset: The symptoms/episode began/occurred jm gradually, 1 year(s) ago. The symptoms do not radiate. Associated signs and symptoms: Pertinent positives: nausea. The symptoms are described as achy. Modifying factors: The symptoms are alleviated by nothing, the symptoms are aggravated by nothing. This is a 45-year-old male with history of hypertension the presents emerged part with complaints of left-sided abdominal pain which radiates to the right. This been ongoing since lifting a grill approximately a year ago. Patient states he is also been under a lot of stress secondary to family issues. States pain intensified last night. States almost vomiting. Denies any diarrhea or fever.. Historical: - Allergies: 08:47 shellfish derived; tw2 08:47 SHELLFISH; tw2 - Home Meds: 08:47 None [Active]; tw2 - PMHx: 08:47 Hypertension; tw2 - PSHx: 08:47 None; tw2 - Immunization history:: Client reports having NOT received the Covid vaccine. Flu vaccine is up to date. - Social history:: Smoking status: Patient reports the use of cigarette tobacco products, cigars, Patient uses alcohol, i drink 16 ox a day of beer. street drugs, marijuana, after work i smoke so i smoke daily.. ROS: 08:57 Constitutional: Negative for fever, chills, and weight loss, Cardiovascular: Negative jmm for chest pain, palpitations, and edema, Respiratory: Negative for shortness of breath, cough, wheezing, and pleuritic chest pain. 08:57 Abdomen/GI: Positive for abdominal pain, nausea. 08:57 All other systems are negative. Exam: 08:57 Constitutional: This is a well developed, well nourished patient who is awake, alert, jmm and in no acute distress. Cardiovascular: Regular rate and rhythm. No edema appreciated Respiratory: Normal respirations, no respiratory distress appreciated 08:57 Back: Normal ROM Skin: General appearance color normal MS/ Extremity: Moves all extremities, no obvious deformities appreciated, no edema noted to the lower extremities Neuro: Awake and alert Psych: Behavior is normal, Mood is normal, Patient is cooperative and pleasant 08:57 Abdomen/GI: Inspection: abdomen appears normal, Bowel sounds: normal, Palpation: abdomen is soft and non-tender, in all quadrants. Vital Signs: 08:49 BP 166 / 125; Pulse 129; Resp 19; Temp 99(TE); Pulse Ox 100% on R/A; Weight 95.25 kg tw2 (R); Height 5 ft. 11 in. (180.34 cm); Pain 8/10; 10:45 BP 165 / 77; Pulse 84; Resp 16; Temp 98.6; Pulse Ox 98% ; Pain 0/10; cb5 08:49 Body Mass Index 29.29 (95.25 kg, 180.34 cm) tw2 MDM: 08:57 Patient medically screened. sada 10:41 Data reviewed: vital signs, nurses notes. Counseling: I had a detailed discussion with sada the patient and/or guardian regarding: the historical points, exam findings, and any diagnostic results supporting the discharge/admit diagnosis, the need for outpatient follow up, to return to the emergency department if symptoms worsen or persist or if there are any questions or concerns that arise at home. ED course: Patient is alert and nontoxic in appearance in the ED. CT shows some concerning findings for duodenitis or ulcer. Will treat with PPI and antibiotics. Patient advised to follow GI for further evaluation otherwise given strict return precautions. Patient understood agrees plan of care.. 08/02 08:59 Order name: Basic Metabolic Panel [facility] 08/02 08:59 Order name: CBC with Diff; Complete Time: 09:[address] [facility] 08/02 08:59 Order name: Hepatic Function; Complete Time: 10:[address] [facility] 08/02 08:59 Order name: Lipase; Complete Time: 10:[address] [facility] 08/02 09:00 Order name: Basic Metabolic Panel; Complete Time: 10:33 [facility] 08/02 09:00 Order name: US Abdomen Limited; Complete Time: 09:[address] [facility] 08/02 08:59 Order name: IV Saline Lock; Complete Time: 09:[address] [facility] 08/02 08:59 Order name: Labs collected and sent; Complete Time: 09:[address] [facility] 08/02 09:09 Order name: CT Abd/Pelvis - Without Contrast; Complete Time: 09:[address] [facility] Administered Medications: 09:11 Drug: NS 0.9% 1000 ml Route: IV; Rate: 1 bolus; Site: right antecubital; cb5 09:11 Drug: Zofran (Ondansetron) 4 mg Route: IVP; Site: right antecubital; cb5 Disposition: 17:39 Co-signature as Attending Physician, Keyshawn Vega MD I agree with the assessment and kdr plan of care. Disposition Summary: 08/02/21 10:42 Discharge Ordered Location: Home [facility] Condition: Stable [facility] Diagnosis - Other abdominal pain [facility] Followup: [facility] - With: Sera Suggs MD - When: 2 - 3 days - Reason: Recheck today's complaints, Continuance of care, Re-evaluation by your physician Discharge Instructions: - Discharge Summary Sheet [facility] - Abdominal Pain, Adult [facility] Forms: - Medication Reconciliation Form [facility] - Thank You Letter [facility] - Antibiotic Education [facility] - Prescription Opioid Use [facility] Prescriptions: - omeprazole 40 mg Oral capsule,delayed release(DR/EC) - take 1 capsule by ORAL route once daily before a meal; 30 capsule; Refills: 0, [facility] Product Selection Permitted - ondansetron 4 mg Oral tablet,disintegrating - take 1 tablet by ORAL route every 4-6 hours; 30 tablet; Refills: 0, Product [facility] Selection Permitted - Cipro 500 mg Oral Tablet - take 1 tablet by ORAL route every 12 hours for 10 days; 20 tablet; Refills: 0, [facility] Product Selection Permitted - Flagyl 500 mg Oral Tablet - take 1 tablet by ORAL route every 6 hours for 10 days; 40 tablet; Refills: 0, [facility] Product Selection Permitted Signatures: Dispatcher [employer] Keyshawn Herzog MD MD kdr Mickail, Joel, PA PA [facility] Ada Good RN RN tw2 Mariam Matta RN RN cb5
--- NOTE | 2021-08-02 10:43 | ER ---
Nurse's Notes [facility] Name: Weston Arce Age: 45 yrs Sex: Male : 1975 Arrival Date: 08/02/2021 Time: 08:37 Bed 15 Private MD: Diagnosis: Other abdominal pain Presentation: 08/02 08:44 Chief complaint: Patient states: i have been having stomach issues for over a hear. i tw2 know one time i strained my stomach after moving a big bbq pit. yesterday it started after i drank 2 cups of coffee. it hurts all over. at times its like shooting pain then at times it likes cramps. Coronavirus screen: nausea, Client presents with at least one sign or symptom that may indicate coronavirus-19. Standard/surgical mask placed on the client. Provider contacted for isolation considerations. Ebola Screen: Patient denies travel to an Ebola-affected area in the 21 days before illness onset. Initial Sepsis Screen: Does the patient meet any 2 criteria? No. Patient's initial sepsis screen is negative. Does the patient have a suspected source of infection? No. Patient's initial sepsis screen is negative. Initial Sepsis Screen: Does the patient meet any 2 criteria? HR > 90 bpm. Risk Assessment: Do you want to hurt yourself or someone else? Patient reports no desire to harm self or others. Onset of symptoms was August 02, 2021. 08:44 Method Of Arrival: Ambulatory tw2 08:44 Acuity: GISSELLE 3 tw2 Triage Assessment: 08:49 General: Appears in no apparent distress. well groomed, Behavior is calm, cooperative, tw2 appropriate for age. Pain: Complains of pain in abdomen. GI: Reports lower abdominal pain, upper abdominal pain, nausea. Historical: - Allergies: 08:47 shellfish derived; tw2 08:47 SHELLFISH; tw2 - Home Meds: 08:47 None [Active]; tw2 - PMHx: 08:47 Hypertension; tw2 - PSHx: 08:47 None; tw2 - Immunization history:: Client reports having NOT received the Covid vaccine. Flu vaccine is up to date. - Social history:: Smoking status: Patient reports the use of cigarette tobacco products, cigars, Patient uses alcohol, i drink 16 ox a day of beer. street drugs, marijuana, after work i smoke so i smoke daily.. Screenin:54 Abuse screen: Denies threats or abuse. Denies injuries from another. Nutritional cb5 screening: No deficits noted. Tuberculosis screening: No symptoms or risk factors identified. 08:55 Fall Risk None identified. tw2 Assessment: 08:52 General: Appears in no apparent distress. Behavior is calm, cooperative, appropriate cb5 for age. Pain: Complains of pain in abdomen Pain currently is 4 out of 10 on a pain scale. Neuro: No deficits noted. Level of Consciousness is awake, alert, obeys commands, Oriented to person, place, time, situation, Appropriate for age. Cardiovascular: No deficits noted. Respiratory: No deficits noted. GI: Bowel sounds present X 4 quads. Abd is soft Abdomen is tender to palpation. : No deficits noted. EENT: No deficits noted. Derm: No deficits noted. Musculoskeletal: No deficits noted. 09:11 General: pt left ER room for abd US. cb5 09:35 General: pt is back in ER room #15. cb5 09:43 General: pt asleep in no acute distress. cb5 Vital Signs: 08:49 BP 166 / 125; Pulse 129; Resp 19; Temp 99(TE); Pulse Ox 100% on R/A; Weight 95.25 kg tw2 (R); Height 5 ft. 11 in. (180.34 cm); Pain 8/10; 10:45 BP 165 / 77; Pulse 84; Resp 16; Temp 98.6; Pulse Ox 98% ; Pain 0/10; cb5 08:49 Body Mass Index 29.29 (95.25 kg, 180.34 cm) tw2 ED Course: 08:37 Patient arrived in ED. as 08:40 Keyshawn Vega MD is Attending Physician. kdr 08:46 Triage completed. tw2 08:49 Arm band placed on. tw2 08:51 Mariam Matta, KARI is Primary Nurse. cb5 08:54 Ramiro Rios PA is PHCP. [facility] 08:54 Patient has correct armband on for positive identification. Call light in reach. Side cb5 rails up X 1. 08:54 No provider procedures requiring assistance completed. cb5 09:10 Lipase Sent. cb5 09:10 Hepatic Function Sent. cb5 09:10 CBC with Diff Sent. cb5 09:10 Basic Metabolic Panel Sent. cb5 09:11 Basic Metabolic Panel Sent. cb5 09:30 CT Abd/Pelvis - Without Contrast In Process Unspecified. EDMS 09:35 US Abdomen Limited In Process Unspecified. EDMS 09:35 Hepatic Function Sent. cb5 10:42 Sera Suggs MD is Referral Physician. jmm 11:07 IV discontinued. cb5 Administered Medications: 09:11 Drug: NS 0.9% 1000 ml Route: IV; Rate: 1 bolus; Site: right antecubital; cb5 09:11 Drug: Zofran (Ondansetron) 4 mg Route: IVP; Site: right antecubital; cb5 Outcome: 10:42 Discharge ordered by . jmm 11:07 Discharged to home ambulatory. cb5 11:07 Condition: stable 11:07 Discharge instructions given to patient. 11:08 Patient left the ED. cb5 Signatures: Dispatcher [employer] EDMS Keyshawn Vega MD MD kdr Mickail, Joel, PA PA jmm Martinez, Amelia as Wise, Tara, RN RN tw2 Mariam Matta, KARI RN cb5
[2021-08-02 11:19] VITALS: BP 165/77; TEMP 98.6; O2SAT 98
== END 2021-08-02 11:08 | disposition home or self-care (01) ==
LOC: ER 08:34
DX: R10.9 Unspecified abdominal pain (principal); I10 Essential (primary) hypertension; Z91.013 Allergy to seafood
CPT/HCPCS: 36415; 74176; 76705; 80048; 80076; 83690; 85025; 96374; 99283; J2405; J7030

== ENCOUNTER → 2022-02-27 | Emergency (ER) | payer SELFPAY | LOC: ER 18:34 | DX: Z02.9 Encounter for administrative examinations, unspecified (principal) ==

== ENCOUNTER 2022-07-08 11:08 | Emergency (ER) | payer SELFPAY ==
[2022-07-08] MEDS ORDERED: NA CHLORIDE 0.9% 1,000 ML ONE (11:25)
[2022-07-08] MEDS ORDERED: FAMOTIDINE 20 MG/2 ML VIAL IV ONE (11:25)
[2022-07-08] MEDS ORDERED: MORPHINE 4 MG/ML SYR ONE ×3 (11:25→12:56)
[2022-07-08 11:38] LABS: Absolute Lymphocytes (CBC) 1.7 K/uL (0.7-4.9); Hematocrit 40.6 % (39.6-49.0); Lymphocytes % 12.2 % (15.3-44.8); MCV 86.9 fL (80-100); MPV 7.8 fL (7.6-11.3); RBC Red Blood Cell Count 4.67 M/uL (4.33-5.43)
--- NOTE | 2022-07-08 11:49 | RAD REPORT ---
EXAM DESCRIPTION: CT - Stone Protocol - 07/08/2022 11:33 am CLINICAL HISTORY: Flank pain. acute onset abdominal pain COMPARISON: Abdomen Pelvis Wo Contrast dated 08/02/2021 TECHNIQUE: Axial images were obtained without oral or IV contrast. Lack of contrast limits solid org an and vascular assessment. The [id number] spans the entirety of the system partially obscuring uppermost abdomen and lung bases. Coronal reformatted images were obtained and reviewed. All CT scans are performed using dose optimization technique as appropriate and may include automated exposure control or mA/KV adjustment according to patient size. FINDINGS: The lower lung jimenez are clear. Imaged portions of the liver and spleen show no suspicious findings on non-contrast imaging. The panc reas and adrenal glands are normal. No pathologic lymphadenopathy in the abdomen or pelvis. No urinary tract stones or obstructive uropathy. No bowel obstruction, free air, significant free fluid or abscess. There is mild inflammation in the right upper quadrant. There is trace fluid seen along the right liver edge. Moderate lumbosacral degenerative changes. IMPRESSION: Mild nonspecific inflammatory changes are seen in the right upper quadrant and right fla nk region. Trace fluid around the right hepatic edge. Recommend contrast-enhanced abdominal CT with o ral and IV contrast for better visualization. .
[2022-07-08 11:54] LABS: Bilirubin Total 1.1 mg/dL (0.2-1.0); Potassium 3.3 mmol/L (3.5-5.1); Protein, Total 7.4 g/dL (6.4-8.2)
[2022-07-08] MEDS ORDERED: METOCLOPRAMIDE 10 MG/2mL INJ ONE ×2 (12:45→12:55)
[2022-07-08] MEDS ORDERED: DIPHENHYDRAMINE 50 MG/ML VIAL ONE ×2 (12:45→12:55)
[2022-07-08] MEDS ORDERED: NA CHLORIDE 0.9% 100 ML ONE ×2 (12:46→12:57)
--- NOTE | 2022-07-08 12:51 | RAD REPORT ---
EXAM DESCRIPTION: US - Abdomen Exam Limited - 07/08/2022 12:17 pm CLINICAL HISTORY: ABD PAIN COMPARISON: Abdomen Exam Limited dated 08/02/2021 FINDINGS: The gallbladder demonstrates no gallstones. No pericholecystic fluid or gallbladder wall t hickening. The common bile duct is normal measuring 3 mm. The liver demonstrates no findings of intrahepatic biliary dilatation. IMPRESSION: Unremarkable examination.
[2022-07-08 13:54] LABS: Urine Blood Negative (Negative); Urine Glucose Negative (Negative); Urine Protein Trace (Negative); Urine pH 7.5 (5.0-7.0)
[2022-07-08] MEDS ORDERED: LIDOCAINE VISCOUS 2% SOLN 15 ML UDC ONE (16:14)
[2022-07-08] MEDS ORDERED: HYDROMORPHONE HCL 0.5 MG/0.5 ML INJ ONE (16:14)
[2022-07-08] MEDS ORDERED: MAGNES/ALUMIN/SIMET 30ML UCUP ONE (16:14)
--- NOTE | 2022-07-08 16:22 | EDPHYS ---
Physician Documentation [facility] Name: Weston Arce Age: 46 yrs Sex: Male : 1975 Arrival Date: 07/08/2022 Time: 11:10 Bed 8 Private MD: ED Physician Elliott Bernal HPI: 07/08 11:14 This 46 yrs old Black Male presents to ER via EMS with complaints of Abdominal Pain. [facility] 11:14 The patient presents with abdominal pain. Onset: The symptoms/episode began/occurred jm acutely, 1 hour(s) ago. The symptoms do not radiate. Associated signs and symptoms: Pertinent positives: nausea and vomiting. The symptoms are described as achy, crampy. Modifying factors: The symptoms are alleviated by nothing, the symptoms are aggravated by nothing. The patient has experienced a previous episode. Historical: - Allergies: 11:11 SHELLFISH; aa5 11:11 shellfish derived; aa5 11:11 Iodine; aa5 - PMHx: 11:11 Hypertension; aa5 - Immunization history:: Adult Immunizations unknown. - Social history:: Smoking status: Patient reports the use of cigarette tobacco products, cigars. ROS: 11:14 Constitutional: Negative for fever, chills, and weight loss, Cardiovascular: Negative jm for chest pain, palpitations, and edema, Respiratory: Negative for shortness of breath, cough, wheezing, and pleuritic chest pain. 11:14 Abdomen/GI: Positive for abdominal pain, nausea and vomiting. 11:14 All other systems are negative. Exam: 11:14 Constitutional: This is a well developed, well nourished patient who is awake, alert, jmm and in no acute distress. Head/Face: atraumatic. Eyes: EOMI, no conjunctival erythema appreciated ENT: Moist Mucus Membranes Neck: Trachea midline, Supple Chest/axilla: Normal chest wall appearance and motion. Cardiovascular: Regular rate and rhythm. No edema appreciated Respiratory: Normal respirations, no respiratory distress appreciated 11:14 Back: Normal ROM Skin: General appearance color normal MS/ Extremity: Moves all extremities, no obvious deformities appreciated, no edema noted to the lower extremities Neuro: Awake and alert Psych: Behavior is normal, Mood is normal, Patient is cooperative and pleasant 11:14 Abdomen/GI: Inspection: abdomen appears normal, Bowel sounds: normal, Palpation: soft, moderate abdominal tenderness, in all quadrants. Vital Signs: 11:10 BP 156 / 95; Pulse 81; Resp 18 S; Temp 98.0(TE); Pulse Ox 100% on R/A; Weight 99.79 kg aa5 (R); Height 5 ft. 11 in. (180.34 cm) (R); Pain 7/10; 13:00 BP 173 / 100; Pulse 88; Resp 16; Pulse Ox 100% ; bp 15:00 BP 162 / 104; Pulse 87; Resp 16; Pulse Ox 100% ; bp 16:17 BP 163 / 104; Pulse 87; Resp 15; Pulse Ox 100% ; kr3 16:55 BP 155 / 87; Pulse 87; Resp 17; Pulse Ox 100% on R/A; kr3 11:10 Body Mass Index 30.68 (99.79 kg, 180.34 cm) aa5 MDM: 11:14 Patient medically screened. sada 16:20 Data reviewed: vital signs, nurses notes. Consideration of Admission/Observation. I sada considered the following discharge prescriptions or medication management in the emergency department Medications were administered in the Emergency Department. See MAR. Counseling: I had a detailed discussion with the patient and/or guardian regarding: the historical points, exam findings, and any diagnostic results supporting the discharge/admit diagnosis, lab results, radiology results, the need for outpatient follow up, to return to the emergency department if symptoms worsen or persist or if there are any questions or concerns that arise at home. ED course: Pain alleviated in the ED. Patient advised to follow-up with GI for further evaluation otherwise given strict return precautions. Patient understood and agrees plan of care.. 07/08 11:14 Order name: CBC with Diff; Complete Time: 11:54 [facility] 07/08 11:14 Order name: CMP; Complete Time: 11:56 [facility] 07/08 11:14 Order name: Lipase; Complete Time: 11:56 [facility] 07/08 11:14 Order name: CT Stone Protocol; Complete Time: 11:54 [facility] 07/08 13:54 Order name: Urine Dipstick-Ancillary; Complete Time: 14:06 [facility] 07/08 11:59 Order name: US Abdomen Limited; Complete Time: 12:54 [facility] 07/08 11:14 Order name: IV Saline Lock; Complete Time: 11:17 [facility] 07/08 11:14 Order name: Labs collected and sent; Complete Time: [facility] 07/08 11:14 Order name: Urine Dipstick-Ancillary (obtain specimen); Complete Time: 14:02 [facility] Administered Medications: Drug: NS 0.9% 1000 ml Route: IV; Rate: 1 bolus; Site: left antecubital; aa5 16:59 Follow up: Response: No adverse reaction; IV Status: Completed infusion; IV Intake: kr3 1000ml 11: Drug: Pepcid (famotidine) 20 mg Route: IVP; Site: left antecubital; aa5 17:00 Follow up: Response: No adverse reaction kr3 11:27 Drug: morphine 4 mg Route: IVP; Infused Over: 4 mins; Site: left antecubital; aa5 17:00 Follow up: Response: No adverse reaction; RASS: Alert and Calm (0) kr3 12:50 Drug: Reglan (metoCLOPramide) 10 mg Route: IVP; Site: left forearm; bp 16:59 Follow up: Response: No adverse reaction kr3 12:50 Drug: morphine 4 mg Route: IVP; Infused Over: 4 mins; Site: left forearm; bp 16:59 Follow up: Response: No adverse reaction; RASS: Alert and Calm (0) kr3 12:50 Drug: diphenhydrAMINE 12.5 mg Route: IVP; Site: left forearm; bp 16:59 Follow up: Response: No adverse reaction kr3 16:15 Drug: GI Cocktail without - (Maalox Suspension 30 ml, Lidocaine Liquid 2 % 15 bp ml) Route: PO; 16:58 Follow up: Response: No adverse reaction kr3 16:15 Drug: Dilaudid (HYDROmorphone) 0.5 mg Route: IVP; Site: left antecubital; bp 16:57 Follow up: Response: No adverse reaction kr3 16:58 Follow up: Response: No adverse reaction; RASS: Drowsy (-1) kr3 Disposition: 07/09 07:00 Co-signature as Attending Physician, Elliott Bernal MD I reviewed the patient's care rn provided by the Advanced Practice Provider and agree with the diagnosis and treatment plan. Disposition Summary: 07/08/22 16:22 Discharge Ordered Location: Home [facility] Condition: Stable [facility] Diagnosis - Abdominal pain, unspecified [facility] Followup: [facility] - With: Private Physician - When: 2 - 3 days - Reason: Recheck today's complaints, Continuance of care, Re-evaluation by your physician Followup: [facility] - With: Tomy Carolina MD - When: 2 - 3 days - Reason: Recheck today's complaints, Continuance of care, Re-evaluation by your physician Discharge Instructions: - Discharge Summary Sheet [facility] - Abdominal Pain, Adult [facility] Forms: - Medication Reconciliation Form [facility] - Thank You Letter [facility] - Antibiotic Education [facility] - Prescription Opioid Use [facility] Prescriptions: - Pepcid 20 mg Oral Tablet - take 1 tablet by ORAL route every 12 hours for 10 days; 20 tablet; Refills: 0, [facility] Product Selection Permitted - dicyclomine 20 mg Oral Tablet - take 1 tablet by ORAL route 4 times per day; 20 tablet; Refills: 0, Product [facility] Selection Permitted - ondansetron 4 mg Oral tablet,disintegrating - place 1 tablet by TRANSLINGUAL route every 4-6 hours; 20 tablet; Refills: 0, [facility] Product Selection Permitted Signatures: Dispatcher [employer] EDMS Ramiro Rios PA PA [facility] Elliott Bernal MD MD rn Rita Pro, RN RN aa5 Buddy Maier, RN RN bp Kristy Chao RN kr3 Corrections: (The following items were deleted from the chart) 07/08 13:11 11:59 Abdomen Pelvis W Con+CT.RAD.BRZ ordered. EDMS EDMS 16:54 13:11 Abdomen ordered. EDMS EDMS
--- NOTE | 2022-07-08 16:22 | ER ---
Nurse's Notes [facility] Name: Weston Arce Age: 46 yrs Sex: Male : 1975 Arrival Date: 07/08/2022 Time: 11:10 Bed 8 Private MD: Diagnosis: Abdominal pain, unspecified Presentation: 07/08 11:10 Chief complaint: EMS states: lower abd pain that began approximately 1 hr [employer]Y [employer] PROTE[employer]. Pt aa5 reports nausea, denies vomiting, last BM yesterday. EMS reports giving 4mg Zofran IVP, 20G to L AC. Coronavirus screen: nausea. Ebola Screen: Patient denies travel to an Ebola-affected area in the 21 days before illness onset. Initial Sepsis Screen: Does the patient meet any 2 criteria? No. Patient's initial sepsis screen is negative. Does the patient have a suspected source of infection? No. Patient's initial sepsis screen is negative. Risk Assessment: Do you want to hurt yourself or someone else? Patient reports no desire to harm self or others. Onset of symptoms was July 08, 2022. 11:10 Acuity: GISSELLE 3 aa5 11:10 Method Of Arrival: EMS: [facility] aa5 Historical: - Allergies: 11:11 SHELLFISH; aa5 11:11 shellfish derived; aa5 11:11 Iodine; aa5 - PMHx: 11:11 Hypertension; aa5 - Immunization history:: Adult Immunizations unknown. - Social history:: Smoking status: Patient reports the use of cigarette tobacco products, cigars. Screenin:12 [facility] ED Fall Risk Assessment (Adult) History of falling in the last 3 months, aa5 including since admission No falls in past 3 months (0 pts) Confusion or Disorientation No (0 pts) Intoxicated or Sedated No (0 pts) Impaired Gait No (0 pts) Mobility Assist Device Used No (0 pt) Altered Elimination No (0 pt) Score/Fall Risk Level 0 - 2 = Low Risk. Abuse screen: Denies threats or abuse. Nutritional screening: No deficits noted. Tuberculosis screening: No symptoms or risk factors identified. Assessment: 11:10 General: Appears uncomfortable, Behavior is calm, cooperative. Pain: Complains of pain aa5 in umbilical area, right lower quadrant and left lower quadrant Pain currently is 7 out of 10 on a pain scale. at worst was 10 out of 10 on a pain scale. Quality of pain is described as crampy, Pain began 1 hr [employer] SAFETY AND PROTECTION Is continuous. Neuro: Level of Consciousness is awake, alert, obeys commands, Oriented to person, place, time, situation. Cardiovascular: Heart tones S1 S2 present Rhythm is regular. Respiratory: Airway is patent Respiratory effort is even, unlabored, Respiratory pattern is regular, symmetrical. GI: Abdomen is round Bowel sounds present X 4 quads. Abdomen is tender to palpation in right upper quadrant, left upper quadrant, right lower quadrant and left lower quadrant Reports nausea, Patient currently denies diarrhea, vomiting. : No signs and/or symptoms were reported regarding the genitourinary system. EENT: No signs and/or symptoms were reported regarding the EENT system. Derm: Skin is dry, Skin is normal, Skin temperature is warm. Musculoskeletal: Range of motion: intact in all extremities. 11:50 Reassessment: Patient states feeling better. Patient states symptoms have improved. Pt aa5 back from CT scan . Pain: Pain currently is 4 out of 10 on a pain scale. 13:00 Reassessment: PO CONTRAST STILL PENDING. bp 15:00 Reassessment: No changes from previously documented assessment. Patient and/or family bp updated on plan of care and expected duration. Pain level reassessed. Vital Signs: 11:10 BP 156 / 95; Pulse 81; Resp 18 S; Temp 98.0(TE); Pulse Ox 100% on R/A; Weight 99.79 kg aa5 (R); Height 5 ft. 11 in. (180.34 cm) (R); Pain 7/10; 13:00 BP 173 / 100; Pulse 88; Resp 16; Pulse Ox 100% ; bp 15:00 BP 162 / 104; Pulse 87; Resp 16; Pulse Ox 100% ; bp 16:17 BP 163 / 104; Pulse 87; Resp 15; Pulse Ox 100% ; kr3 16:55 BP 155 / 87; Pulse 87; Resp 17; Pulse Ox 100% on R/A; kr3 11:10 Body Mass Index 30.68 (99.79 kg, 180.34 cm) aa5 ED Course: 11:10 Patient arrived in ED. aa5 11:10 Arm band placed on. aa5 11:10 Patient has correct armband on for positive identification. Bed in low position. Call aa5 light in reach. Side rails up X 1. 11:11 Triage completed. aa5 11:12 Ramiro Rios PA is PHCP. [facility] 11:12 Elliott Bernal MD is Attending Physician. jmm 11:12 Rita Pro, RN is Primary Nurse. aa5 11:35 CT Stone Protocol In Process Unspecified. EDMS 11:54 CMP Sent. rs5 12:02 Report given to Kristy Guzman RN. aa5 12:19 US Abdomen Limited In Process Unspecified. EDMS 15:35 Primary Nurse role handed off by Rita Pro, KARI jl7 15:35 Kristy Chao RN is Primary Nurse. jl7 16:30 Tomy Carolina MD is Referral Physician. [facility] 16:55 No provider procedures requiring assistance completed. IV discontinued, intact, kr3 bleeding controlled, No redness/swelling at site. Pressure dressing applied. Administered Medications: 11:27 Drug: NS 0.9% 1000 ml Route: IV; Rate: 1 bolus; Site: left antecubital; aa5 16:59 Follow up: Response: No adverse reaction; IV Status: Completed infusion; IV Intake: kr3 1000ml 11:27 Drug: Pepcid (famotidine) 20 mg Route: IVP; Site: left antecubital; aa5 17:00 Follow up: Response: No adverse reaction kr3 11:27 Drug: morphine 4 mg Route: IVP; Infused Over: 4 mins; Site: left antecubital; aa5 17:00 Follow up: Response: No adverse reaction; RASS: Alert and Calm (0) kr3 12:50 Drug: Reglan (metoCLOPramide) 10 mg Route: IVP; Site: left forearm; bp 16:59 Follow up: Response: No adverse reaction kr3 12:50 Drug: morphine 4 mg Route: IVP; Infused Over: 4 mins; Site: left forearm; bp 16:59 Follow up: Response: No adverse reaction; RASS: Alert and Calm (0) kr3 12:50 Drug: diphenhydrAMINE 12.5 mg Route: IVP; Site: left forearm; bp 16:59 Follow up: Response: No adverse reaction kr3 16:15 Drug: GI Cocktail without - (Maalox Suspension 30 ml, Lidocaine Liquid 2 % 15 bp ml) Route: PO; 16:58 Follow up: Response: No adverse reaction kr3 16:15 Drug: Dilaudid (HYDROmorphone) 0.5 mg Route: IVP; Site: left antecubital; bp 16:57 Follow up: Response: No adverse reaction kr3 16:58 Follow up: Response: No adverse reaction; RASS: Drowsy (-1) kr3 Medication: 16:56 VIS not applicable for this client. kr3 Intake: 16:59 IV: 1000ml; Total: 1000ml. kr3 Outcome: 16:22 Discharge ordered by . sada 16:55 Discharged to home via wheelchair. kr3 16:55 Condition: stable 16:55 Discharge instructions given to patient, Instructed on discharge instructions, follow up and referral plans. medication usage, Demonstrated understanding of instructions, follow-up care, medications, Prescriptions given X 3. 17:00 Patient left the ED. kr3 Signatures: Dispatcher [employer] EDMS Ramiro Rios PA PA jmm Calderon, Audri, RN RN aa5 Garrett Sanford RN RN jl7 Buddy Maier, KARI PIERCE bp Kristy Chao, KARI RN kr3 Shaun Macdonald rs5
[2022-07-08 17:04] VITALS: TEMP 98; O2SAT 100
[2022-07-08 17:09] VITALS: BP 155/87
== END 2022-07-08 17:00 | disposition home or self-care (01) ==
LOC: ER 11:08
DX: R10.30 Lower abdominal pain, unspecified (principal)
CPT/HCPCS: 36415; 74176; 76377; 76705; 80053; 81003; 83690; 85025; 99284; J1170; J1200; J2765; J7030

== ENCOUNTER 2022-07-09 13:34 | Inpatient (IN) | payer SELFPAY ==
[2022-07-09] MEDS ORDERED: ONDANSETRON 4 MG/2 ML VIAL ONE ×2 (14:34→18:15)
[2022-07-09] MEDS ORDERED: MORPHINE 4 MG/ML SYR ONE (14:34)
[2022-07-09 14:41] LABS: Absolute Lymphocytes (CBC) 0.7 K/uL (0.7-4.9); Hematocrit 51.6 % (39.6-49.0); Lymphocytes % 6.7 % (15.3-44.8); MCV 87.8 fL (80-100); MPV 8.1 fL (7.6-11.3); RBC Red Blood Cell Count 5.87 M/uL (4.33-5.43)
[2022-07-09 14:59] LABS: Bilirubin Total 1.5 mg/dL (0.2-1.0); Potassium 3.7 mmol/L (3.5-5.1); Protein, Total 8.7 g/dL (6.4-8.2); Troponin High Sensitivity 14.7 pg/mL (<58.9)
--- NOTE | 2022-07-09 15:33 | RAD REPORT ---
EXAM DESCRIPTION: CT - Abdomen Pelvis Wo Contrast - 07/09/2022 3:21 pm CLINICAL HISTORY: Abdominal pain. abdominal pain COMPARISON: Stone Protocol dated 07/08/2022 TECHNIQUE: CT imaging of the abdomen and pelvis was performed without contrast. Solid organ and vasc ular assessment is limited due to lack of IV contrast. All CT scans are performed using dose optimization technique as appropriate and may include automated exposure control or mA/KV adjustment according to patient size. FINDINGS: Trace left and small right pleural effusion with atelectasis in both lung bases. Moderate pneumoperitoneum. This is compatible with a perforated viscus. Is difficult to ascertain the exact location of the perforated viscus. There is some high density material along the right liver edge as well which has the appearance of bl ood product.This may indicate hemoperitoneum is also present. Similar high density fluid is seen in t he pelvis, likely blood. IMPRESSION: There is a significant hemoperitoneum present along with a pneumoperitoneum. Recommend s urgical consultation. A limited non-contrast examination was performed as detailed.
[2022-07-09] MEDS ORDERED: NA CHLORIDE 0.9% 250 ML ONE (16:25)
[2022-07-09] MEDS ORDERED: PANTOPRAZOLE 40 MG INJ ONE (16:25)
[2022-07-09] MEDS ORDERED: NA CHLORIDE 0.9% 1,000 ML ONE (16:26)
[2022-07-09] MEDS ORDERED: NA CHLORIDE 0.9% 100 ML ONE (16:26)
[2022-07-09] MEDS ORDERED: PIPERACIL/TAZO 3.375 GM VIAL IV ONE (16:26)
[2022-07-09] MEDS ORDERED: HYDROMORPHONE HCL 1 MG/ML INJ ONE (16:26)
--- NOTE | 2022-07-09 16:48 | ER ---
Nurse's Notes [facility] Name: Weston Arce Age: 46 yrs Sex: Male : 1975 Arrival Date: 07/09/2022 Time: 13:36 Bed 4 Private MD: Diagnosis: Hemoperitoneum;Pneumoperitoneum Presentation: 07/09 14:00 Chief complaint: Patient states: generalized ABD pain, denies chest pain, states vg1 difficulty breathing. Coronavirus screen: Vaccine status: Patient reports being unvaccinated. Client denies travel out of the [place] in the last 14 days. Ebola Screen: Patient negative for fever greater than or equal to 101.5 degrees Fahrenheit, and additional compatible Ebola Virus Disease symptoms. Initial Sepsis Screen: Does the patient meet any 2 criteria? RR > 20 per min. HR > 90 bpm. Yes Does the patient have a suspected source of infection? No. Patient's initial sepsis screen is negative. If YES to both, name of provider notified: Elliott Bernal MD. Risk Assessment: Do you want to hurt yourself or someone else?. Onset of symptoms was July 08, 2022. 14:00 Method Of Arrival: EMS: [facility] vg1 14:00 Acuity: GISSELLE 3 vg1 14:16 Acuity: GISSELLE 2 iw Triage Assessment: 14:09 General: Appears uncomfortable, Behavior is anxious. Pain: Complains of pain in vg1 abdomen. Cardiovascular: Capillary refill < 3 seconds in bilateral fingers. Respiratory: Airway is patent Respiratory effort is even, labored, Respiratory pattern is tachypnea. Derm: Skin is clammy. Historical: - Allergies: 14:09 Iodine; vg1 14:09 SHELLFISH; vg1 14:09 shellfish derived; vg1 - Home Meds: 14:09 None [Active]; vg1 - PMHx: 14:09 Hypertension; vg1 - Immunization history:: Client reports having NOT received the Covid vaccine. - Social history:: Smoking status: Patient reports the use of cigarette tobacco products, cigars. Screenin:39 [facility] ED Fall Risk Assessment (Adult) History of falling in the last 3 months, iw including since admission No falls in past 3 months (0 pts). Abuse screen: Denies threats or abuse. Denies injuries from another. Nutritional screening: No deficits noted. Tuberculosis screening: No symptoms or risk factors identified. Assessment: 13:58 Reassessment: COMPLETED ORAL CONTRAST; CT NOTIFIED. vg1 14:37 General: Appears uncomfortable, Behavior is cooperative. Pain: Complains of pain in iw right upper quadrant, left upper quadrant, right lower quadrant and left lower quadrant Pain currently is 10 out of 10 on a pain scale. Pain began 1 day ago. Is continuous. Neuro: Level of Consciousness is awake, alert, obeys commands, Oriented to person, place, time, situation, Moves all extremities. Full function. Cardiovascular: Patient's skin is warm and dry. Respiratory: Respiratory effort is even, unlabored, Respiratory pattern is regular, symmetrical. GI: Abdomen is distended, Bowel sounds present X 4 quads. Reports lower abdominal pain, upper abdominal pain, gaseousness. 16:30 Reassessment: Dr. Stern at bedside discussing results and POC. 7 16:55 Reassessment: pt consented for surgery by , belongings sent with OR nurse , iw family notified by pt via cell phone. Vital Signs: 14:00 BP 120 / 95; Pulse 130; Resp 24; Temp 98.2(TE); Pulse Ox 97% on R/A; Weight 99.79 kg; vg1 Height 5 ft. 11 in. (180.34 cm); Pain 10/10; 14:39 BP 123 / 101; Pulse 113; Resp 20 S; Pulse Ox 99% ; Pain 10/10; iw 14:00 Body Mass Index 30.68 (99.79 kg, 180.34 cm) vg1 ED Course: 13:36 Patient arrived in ED. as 13:43 Ramiro Rios PA is PHCP. [facility] 13:43 Elliott Bernal MD is Attending Physician. jm 14:09 Triage completed. vg1 14:09 Arm band placed on. EKG completed in triage. Results shown to . vg1 14:16 Kylie Ghosh, RN is Primary Nurse. iw 14:28 Initial lab(s) drawn, by me, sent to lab. Inserted saline lock: 22 gauge in left tm3 antecubital area, using aseptic technique. 15:22 Abdomen In Process Unspecified. EDMS 16:18 initiated transfer to [facility], transfer center never answered, initiated bd transfer to [facility]. 16:[address] Stern, pt will go to OR here. bd 16:46 Sheldon Bernal MD is Hospitalizing Provider. sada 16:56 No provider procedures requiring assistance completed. Patient admitted, IV remains in iw place. intact, bleeding controlled, No redness/swelling at site. Pressure dressing applied. Patient maintains SpO2 saturation greater than 95% on room air. 16:57 Patient has correct armband on for positive identification. Client placed on continuous iw cardiac and pulse oximetry monitoring. NIBP monitoring applied. Administered Medications: 14:37 Drug: morphine 4 mg Route: IVP; Infused Over: 4 mins; Site: left antecubital; iw 14:37 Drug: Zofran (Ondansetron) 4 mg Route: IVP; Site: left antecubital; iw 16:30 Drug: NS 0.9% 1000 ml Route: IV; Rate: 1 bolus; Site: right antecubital; jl7 16:32 Drug: ProTONIX (pantoprazole) 40 mg Route: IVP; Site: right antecubital; jl7 16:35 Drug: Dilaudid (HYDROmorphone) 1 mg Route: IVP; Site: right antecubital; jl7 16:38 Drug: Zosyn (piperacillin-tazobactam) 3.375 grams Route: IVPB; Infused Over: 60 mins; jl7 Site: right antecubital; 16:40 Drug: ProTONIX (pantoprazole) 8 mg/hr Route: IV; Rate: 25 ml/hr; Site: left antecubital;jl7 Medication: 16:57 VIS not applicable for this client. Outcome: 16:47 Decision to Hospitalize by Provider. sada 16:56 Admitted to OR accompanied by nurse, via stretcher, Report called to KARI Terrell iw 16:56 Condition: good 16:56 Instructed on the need for admit. 16:57 Patient left the ED. iw Signatures: Dispatcher [employer] EDMS Charleen Pena Toni tm3 Ramiro Rios PA PA jmm Martinez, Amelia as Williams, Irene, RN RN iw Garrett Sanford RN RN jl7 Nazia Hines RN RN vg1 Corrections: (The following items were deleted from the chart) 14:11 14:00 Initial Sepsis Screen: Does the patient meet any 2 criteria? HR > 90 bpm. Does vg1 the patient have a suspected source of infection? No. Patient's initial sepsis screen is negative. vg1
--- NOTE | 2022-07-09 16:48 | EDPHYS ---
Physician Documentation [facility] Name: Weston Arce Age: 46 yrs Sex: Male : 1975 Arrival Date: 07/09/2022 Time: 13:36 Bed 4 Private MD: ED Physician Elliott Bernal HPI: 07/09 13:45 This 46 yrs old Black Male presents to ER via EMS with complaints of Chest Pain. jmm 13:45 The patient presents with abdominal pain. Onset: The symptoms/episode began/occurred jmm gradually, 2 day(s) ago. The symptoms do not radiate. Is a 46-year-old male with history of hypertension the presents emerged part with complaints of worsening abdominal pain. Patient was seen in the ED yesterday with a CT showing inflammation of the right upper quadrant. Patient states he is unable keep down liquids. Multiple episodes of vomiting denies any bowel movements.. Historical: - Allergies: 14:09 Iodine; vg1 14:09 SHELLFISH; vg1 14:09 shellfish derived; vg1 - Home Meds: 14:09 None [Active]; vg1 - PMHx: 14:09 Hypertension; vg1 - Immunization history:: Client reports having NOT received the Covid vaccine. - Social history:: Smoking status: Patient reports the use of cigarette tobacco products, cigars. ROS: 13:45 Constitutional: Negative for fever, chills, and weight loss, Cardiovascular: Negative jmm for chest pain, palpitations, and edema, Respiratory: Negative for shortness of breath, cough, wheezing, and pleuritic chest pain. 13:45 Abdomen/GI: Positive for abdominal pain. 13:45 All other systems are negative. Exam: 13:45 Head/Face: atraumatic. Eyes: EOMI, no conjunctival erythema appreciated ENT: Moist jmm Mucus Membranes Neck: Trachea midline, Supple Chest/axilla: Normal chest wall appearance and motion. Cardiovascular: Regular rate and rhythm. No edema appreciated Respiratory: Normal respirations, no respiratory distress appreciated 13:45 Back: Normal ROM Skin: General appearance color normal MS/ Extremity: Moves all extremities, no obvious deformities appreciated, no edema noted to the lower extremities Neuro: Awake and alert Psych: Behavior is normal, Mood is normal, Patient is cooperative and pleasant 13:45 Constitutional: The patient appears alert, awake, anxious, uncomfortable. 13:45 Abdomen/GI: Guarding and rebound on all 4 quadrants on palpation. Vital Signs: 14:00 BP 120 / 95; Pulse 130; Resp 24; Temp 98.2(TE); Pulse Ox 97% on R/A; Weight 99.79 kg; vg1 Height 5 ft. 11 in. (180.34 cm); Pain 10/10; 14:39 BP 123 / 101; Pulse 113; Resp 20 S; Pulse Ox 99% ; Pain 10/10; iw 14:00 Body Mass Index 30.68 (99.79 kg, 180.34 cm) vg1 MDM: 13:45 Patient medically screened. [facility] 16:02 Data reviewed: vital signs, nurses notes. ED course: . Pedrito's did not answer. Will [facility] attempt to transfer to [facility]. 16:44 Management of patient was discussed with the following: Apron Cleaner: Dr. Stern. [facility] Management of patient was discussed with the following: Hospitalist: Dr. Bernal. I considered the following discharge prescriptions or medication management in the emergency department Medications were administered in the Emergency Department. See MAR. Counseling: I had a detailed discussion with the patient and/or guardian regarding: the historical points, exam findings, and any diagnostic results supporting the discharge/admit diagnosis, lab results, radiology results, the need for further work-up and treatment in the hospital. 07/09 13:46 Order name: CBC with Diff; Complete Time: 14:44 [facility] 07/09 13:46 Order name: CMP; Complete Time: 15:04 [facility] 07/09 13:46 Order name: Lipase; Complete Time: 15:04 [facility] 07/09 13:46 Order name: Troponin High Sensitivity; Complete Time: 15:04 [facility] 07/09 15:38 Order name: Blood Culture Adult (2) [facility] 07/09 15:38 Order name: Lactate w/ 2H reflex if indic. [facility] 07/09 14:01 Order name: Abdomen ; Complete Time: 15:33 [facility] 07/09 15:44 Order name: Type And Screen [facility] 07/09 15:52 Order name: SARS-COV-2 Antigen Rapid 07/09 13:46 Order name: IV Saline Lock; Complete Time: 14:29 [facility] 07/09 13:46 Order name: Labs collected and sent; Complete Time: 14:29 [facility] 07/09 13:46 Order name: EKG - Nurse/Tech; Complete Time: 14:40 [facility] Administered Medications: 14:37 Drug: morphine 4 mg Route: IVP; Infused Over: 4 mins; Site: left antecubital; iw 14:37 Drug: Zofran (Ondansetron) 4 mg Route: IVP; Site: left antecubital; iw 16:30 Drug: NS 0.9% 1000 ml Route: IV; Rate: 1 bolus; Site: right antecubital; jl7 16:32 Drug: ProTONIX (pantoprazole) 40 mg Route: IVP; Site: right antecubital; jl7 16:35 Drug: Dilaudid (HYDROmorphone) 1 mg Route: IVP; Site: right antecubital; jl7 16:38 Drug: Zosyn (piperacillin-tazobactam) 3.375 grams Route: IVPB; Infused Over: 60 mins; jl7 Site: right antecubital; 16:40 Drug: ProTONIX (pantoprazole) 8 mg/hr Route: IV; Rate: 25 ml/hr; Site: left antecubital;jl7 Disposition: 18:13 Co-signature as Attending Physician, Elliott Bernal MD I reviewed the patient's care rn provided by the Advanced Practice Provider and agree with the diagnosis and treatment plan. Disposition Summary: 07/09/22 16:47 Hospitalization Ordered Hospitalization Status: Inpatient Admission [facility] Provider: Sheldon Bernal Location: Telemetry/[facility] (Inpatient) [facility] Condition: Stable [facility] Problem: new jmm Symptoms: are unchanged [facility] Bed/Room Type: Standard [facility] Room Assignment: [facility] Diagnosis - Hemoperitoneum jmm - Pneumoperitoneum jm Discharge Instructions: - Discharge Summary Sheet aa5 Forms: - Medication Reconciliation Form jmm - SBAR form aa5 Signatures: Dispatcher [employer] EDMS Ramiro Rios PA PA jmm Williams, Irene, RN RN iw Nieto, Roman, MD MD rn Leal, Jahala, RN RN jl7 Nazia Hines RN RN vg1 Corrections: (The following items were deleted from the chart) 14:01 13:47 Abdomen Pelvis W Con+CT.RAD.BRZ ordered. EDMS EDMS
[2022-07-09] MEDS ORDERED: SUCCINYLCHOLINE 20 MG/ML (10 ML) IV ONE (17:15)
[2022-07-09 17:16] LABS: SARS-CoV-2 Antigen Rapid Res Negative (Negative)
[2022-07-09] MEDS ORDERED: BUPIVACAINE 0.25% PF 10 ML VIAL ONE (17:16)
[2022-07-09] MEDS ORDERED: FENTANYL CITR 250 MCG/5 ML ONE (17:18)
[2022-07-09] MEDS ORDERED: MIDAZOLAM HCL 2 MG/2 ML INJ ONE (17:18)
[2022-07-09] MEDS ORDERED: ROCURONIUM 50 MG/5 ML VIAL IV ONE ×2 (17:18→18:15)
[2022-07-09] MEDS ORDERED: propofoL 200 MG/20 ML VIAL IV ONE (17:18)
[2022-07-09] MEDS ORDERED: dexAMETHasone 10 MG/ML VIAL ONE (18:06)
[2022-07-09] MEDS ORDERED: METHYLENE BLUE 0.5% 10 ML AMP ONE (18:26)
[2022-07-09] MEDS ORDERED: SODIUM CHLORIDE 0.9% 10ML INJ IV PRN (18:37)
[2022-07-09] MEDS ORDERED: ACETAMINOPHEN 325 MG TABLET PO PRN (18:37)
--- NOTE | 2022-07-09 18:38 | P.HP ---
Certification for Inpatient Patient admitted to: Inpatient With expected LOS: >2 Midnights Patient will require the following post-hospital care: None Practitioner: I am a practitioner with admitting privileges, knowledge of patient current condition, hospital course, and medical plan of care. Services: Services provided to patient in accordance with Admission requirements found in Title 42 Section 412.3 of the Code of Federal Regulations Patient History Date of Service: 07/09/22 Reason for admission: Abdominal pain. History of Present Illness: Patient is a 46-year-old male with a past medical history significant for hypertension, duodenal ulcer, drug abuse, nicotine dependence, alcohol abuse who presents with complaint of generalized abdominal pain that has been ongoing for the past 2 days. Patient rated pain as 10/10 and described pain as burning\pressure in quality. Patient reported associated signs and symptoms of abdominal distention, loss of appetite and nausea. Patient denies any other signs and symptoms. Symptoms are aggravated or relieved by nothing. Patient decided to present to the hospital due to worsening symptoms. . Allergies shellfish derived Allergy (Verified 03/17/19 08:45) UNK Home Medications: Amlodipine [Norvasc*] 10 mg PO DAILY 30 Days #30 tab 03/18/19 - Past Medical/Surgical History Diabetic: No -: Hypertension -: Duodenal ulcer Past Surgical History: Reviewed- Non-Contributory - Family History Family History: Reviewed- Non-Contributory - Social History Smoking Status: Current every day smoker Counseled patient to stop smoking for: less than 10 minutes Smoking therapy provided: Yes Patient receptive to therapy: Yes Alcohol use: Yes CD- Drugs: Yes Caffeine use: Yes Place of Residence: Home Review of Systems General: Other (Loss of appetite.) Eyes: Unremarkable ENT: Unremarkable Respiratory: Unremarkable Cardiovascular: Unremarkable Gastrointestinal: Nausea, Abdominal Pain, Distention Genitourinary: Unremarkable Musculoskeletal: Unremarkable Integumentary: Unremarkable Neurological: Unremarkable Lymphatics: Unremarkable Physical Examination - Vital Signs Temperature: 98.2 F Blood Pressure: 123/101 Pulse: 113 Respirations: 20 - Physical Exam General: Alert, In no apparent distress, Oriented x3, Cooperative HEENT: Atraumatic, PERRLA, Mucous membr. moist/pink, EOMI, Sclerae nonicteric Neck: Supple, 2+ carotid pulse no bruit, No LAD, Without JVD or thyroid abnormality Respiratory: Clear to auscultation bilaterally, Normal air movement Cardiovascular: No edema, Regular rate/rhythm, Normal S1 S2 Capillary refill: <2 Seconds Gastrointestinal: Hypoactive, Distended, Tenderness Musculoskeletal: No clubbing, No swelling, No tenderness Integumentary: No rashes, No breakdown Neurological: Normal speech, Normal tone, Normal affect Lymphatics: No axilla or inguinal lymphadenopathy - Studies Laboratory Data (last 24 hrs) 07/09/22 14:25: Sodium 134 L D, Potassium 3.7, BUN 15, Creatinine 1.41 H, Glucose 113 H, Total Bilirubin 1.5 H, AST 15, ALT 20, Alkaline Phosphatase 61, Lipase 310 07/09/22 14:25: WBC 11.00 H, Hgb 17.0 D, Hct 51.6 H, Plt Count 337 Assessment and Plan - Plan -- Perforated bowel. CT imaging indicates significant hemoperitoneum present along with a pneumoperitoneum. Surgeon consulted. Plans to take patient to the OR for an exploratory laparotomy. Will await further recommendation from surgeon. --Acute pain. We will manage pain with current pain medication regimen. --Duodenal ulcer. Patient reported that he was diagnosed with ulcer 2 years ago and patient reported that he has not been on medications for the past couple of months due to financial constraints. Social service consult initiated for assistance. Continue Protonix. -- Nicotine dependence. Patient placed on nicotine patch and counseled on tobacco cessation. --Alcohol abuse. Patient denies alcohol withdrawal symptoms with alcohol cessation. [facility] protocol. --Drug abuse. Patient reports using ecstasy and cannabis. Patient counseled on drug cessation. --CKD 2. Slight depreciation in kidney functions noted. Patient reported poor p.o. intake in the last 2 days. We will continue to monitor renal functions. --Class I obesity. Likely secondary to excess calories intake. Patient counseled on weight reduction, diet and excise therapy. --Hypertension. Stable. We will manage BP with labetalol as needed. --DVT prophylaxis with SCDs. Discharge Plan: Home Plan to discharge in: Greater than 2 days - Advance Directives Does patient have a Living Will: No Does patient have a Durable POA for Healthcare: No - Code Status/Comfort Care Code Status Assessed: Yes Physician Review: Patient Assessed, Agree with Above Assessment and Plan Critical Care: No
[2022-07-09] MEDS ORDERED: LABETALOL 20 MG/4ML SYRINGE IV PRN (18:39)
[2022-07-09] MEDS ORDERED: NEOSTIGMINE 1 MG/ML -10 ML VIAL ONE (19:04)
[2022-07-09] MEDS ORDERED: GLYCOPYRROLATE 0.2 MG/ML SYR ONE (19:07)
--- NOTE | 2022-07-09 19:08 | P.OP ---
Preoperative diagnosis: Intestinal Perforation Postoperative diagnosis: Duodenal Perforation Primary procedure: Exploratory Laparotomy Secondary procedure: Marvin Patch Other procedure(s): Washout Anesthesia: GETA Estimated blood loss: <5cc Specimen: None Findings: Perforation of Duodenal Bulb Complications: None Drain(s): ALEXANDRU drain (10mm Flat ALEXANDRU) Transferred to: Recovery Room Condition: Good
[2022-07-09] MEDS ORDERED: Ringers Lactate 1,000 ML IV ONE (19:46)
--- NOTE | 2022-07-09 19:59 | OP ---
Date of Procedure: 07/09/2022 Surgeon: Rae Stern MD, Preoperative Diagnosis: Intestinal perforation. Postoperative Diagnosis: Duodenal bulb perforation. Procedures: 1.Exploratory laparotomy. 2.Marvin patch repair of perforated duodenal ulcer. 3.Abdominal washout. Anesthesia: General endotracheal. Estimated Blood Loss: 5 cc. Specimen: None. Findings: Perforation of the duodenal bulb. Complications: None immediate. Drains: 10 mm flat ALEXANDRU drain placed on the duodenal bulb region. Disposition: The patient was transferred to recovery room, ultimately to ICU in serious condition. Procedure In Detail: After informed consent was obtained, patient was brought to the operating room, prepped and draped in the usual sterile fashion. After adequate anesthesia was achieved, I performe d an upper midline incision down to subcutaneous tissues with 10 blade down to subcutaneous tissues. Electrocautery was used to dissect down to the linea alba which was opened sharply. I then dissecte d down to the peritoneal, grasped, elevated sharply into the peritoneum using Metzenbaum scissors. I mmediately encountered was gas and fluid. Pool sucker was used to suction out significant amount of gastric and duodenal bile stained fluid from the foregut region. This area was opened in its entiret y through an upper midline incision. I then dissected down and visualized the stomach and palpated a long the region till I found a significant area of thickening in the duodenum consistent with a duode nal perforation. A small duodenal perforation of approximately 0.25 cm was appreciated. This was ir rigated, cleansed out, and I placed 2 stay sutures of 2-0 silk suture on the proximal distal aspect, brought up a vascularized tongue of omental pedicle, placed it through the stay sutures and ultimatel y secured this down with good apposition of tissue. No additional fluid was emanating from the Graha m patch repair. Air was pumped in the stomach and no bubbles were appreciated upon leak test. At th is point, I placed a 10 mm flat ALEXANDRU drain in the region around the Marvin patch repair and brought it out through a separate stab incision in the right upper quadrant. This was secured to the skin using a 2-0 nylon suture with good grasp of the drain. At this point, the abdomen was copiously irrigated with approximately 3.5 L of saline until completely clear. There was contamination to the entire ab dominal compartment, hepatic perisplenic spaces, as well as the space of Retzius and pararectal space . Bilateral lower quadrants also irrigated. There were interloop fluid collections withdrawal broke n up and ultimately drained out. Effluent was clear at the end of the procedure. I then proceeded t o place the abdominal FISH in place and the abdomen was closed using a #1 looped PDS suture in a runn ing fashion with good approximation of tissues. The skin was then irrigated and closed with interrup rae angel luis, and a sterile dressing was placed over top. The patient tolerated the procedure without evidence of any complication, transferred to PACU in good condition and ultimately to be transferred to ICU. All counts were correct at the end of the case. NAHED/MODL Voice ID: [id number] Report ID: [id number]
[2022-07-09] MEDS ORDERED: PANTOPRAZOLE INJ 80 MG in NA CHLORIDE 0.9% 250 ML IV SCH ×4 (20:00)
[2022-07-09] MEDS ORDERED: PANTOPRAZOLE 40 MG INJ IVP SCH (20:00)
[2022-07-09] MEDS: D5.45NS W/KCL 20MEQ 1,000 ML IV SCH (20:55)
[2022-07-09] MEDS: INSULIN -REGULAR HUMAN 50 UNIT/0.5 ML ML SQ SCH (21:00)
[2022-07-09 22:00] LABS: Magnesium 2.9 mg/dL (1.6-2.4); Phosphorus 3.6 mg/dL (2.5-4.9)
[2022-07-09] MEDS: HYDROMORPHONE HCL 2 MG/ML inj IV PRN (22:30)
[2022-07-10] MEDS: PIPER TAZO 3.375 GM in NA CHLORIDE 0.9% 100 ML IV SCH ×3 (00:30→16:45)
[2022-07-10] MEDS: HYDROMORPHONE HCL 2 MG/ML inj IV PRN ×4 (04:00→19:30)
[2022-07-10 05:03] LABS: Absolute Lymphocytes (CBC) 0.3 K/uL (0.7-4.9); Hematocrit 41.1 % (39.6-49.0); Lymphocytes % 3.8 % (15.3-44.8); MCV 86.8 fL (80-100); MPV 8.4 fL (7.6-11.3); RBC Red Blood Cell Count 4.74 M/uL (4.33-5.43)
[2022-07-10 05:17] LABS: Albumin 2.5 g/dL (3.4-5.0); Bilirubin Total 1.3 mg/dL (0.2-1.0); Potassium 4.1 mmol/L (3.5-5.1); Protein, Total 6.6 g/dL (6.4-8.2)
--- NOTE | 2022-07-10 06:22 | P.PN ---
Date of Service: 07/10/22 Subjective: s/p sarah patch yesterday, no acute events overnight thirsty ROS: 10 point ROS as noted above, otherwise negative Physical exam GEN: Alert, oriented, NAD HEENT: Normal conjunctiva, sclera anicteric, NGT in place CV: sinus tachycardia, no edema Pulm: Nonlabored respirations on 3L NC ABD: Soft, nondistended, mild tenderness Integumentary: No rashes Neuro: Normal speech, normal affect raymundo in place Problem List sepsis secondary to Duodenal perforation, now s/p sarah patch h/o duodenal ulcer JENI, without CKD HTN Nicotine dependence h/o alcohol dependence and recreational drug use sepsis secondary to duodenal perforation SIRS 2/4: tachycardia, tachypnea; afebrile, WBC peaked at 11k qSOFA: 1 on presentation; RR: 24 s/p sarah patch by Dr. Stern on 07/09 admitted to ICU after surgery for close monitoring overnight NPO, IVF continue Zosyn pain control JENI suspect prerenal; minimal PO intake secondary to pain continue IVF repeat bmp in AM Alcohol/recreational drug use ecstasy and cannabis usage CIWA protocol denies h/o alcohol withdrawal; last drink was ~3-4 days prior to admission HTN BP remains low, low-normal monitor for now, anti-hypertensives when needed VTE: lovenox Code: full Dispo: home, ~3 days
[2022-07-10] MEDS: INSULIN -REGULAR HUMAN 50 UNIT/0.5 ML ML SQ SCH ×4 (07:30→21:00)
[2022-07-10] MEDS: NICOTINE 21 MG/PAT TD SCH (07:52)
[2022-07-10] MEDS: ENOXAPARIN 40 MG/0.4 ML SQ SCH (07:53)
[2022-07-10] MEDS: D5.45NS W/KCL 20MEQ 1,000 ML IV SCH ×3 (07:53→17:33)
[2022-07-10] MEDS ORDERED: PANTOPRAZOLE 40 MG INJ IVP SCH (09:00)
[2022-07-10] MEDS: ONDANSETRON 4 MG/2 ML VIAL IV PRN ×3 (09:17→19:53)
--- NOTE | 2022-07-10 16:47 | CON ---
Date of Consultation: 07/09/2022 Brief History Of Present Illness: The patient is a 46-year-old male with past medical history for hy pertension, ulcers, drug abuse including Ecstasy, nicotine dependence with cigars, alcohol abuse who comes in with significant worsening abdominal pain beginning approximately 2 days prior. He was rece ntly seen in the ER with inflammatory changes of his stomach and small bowel. However, he went home and stated the pain got significantly worse. He continued to eat a little, but had increasing pain s hortly thereafter. He presents now with severe abdominal pain and evidence of a perforated viscus. Past Medical History: Hypertension, peptic ulcer disease. Past Surgical History: Denies. Allergies: TO SHELLFISH, IODINE. Social History: He admits to smoking cigars every day. He admits to recreational alcohol abuse. He also admits to recreational drug abuse including Ecstasy as of 2-3 days prior. He is . Home Medications: Include amlodipine, but he has not taken that he states in a long time. Review of Systems: Ten-point review of systems, he has decreased appetite, abdominal pain, distention as described. Oth erwise, 10-point review of systems is negative. Physical Examination: Vital Signs: At the time of my examination, temperature 98.2, blood pressure 123/101, pulse is 113, respiratory rate 20. His saturations were 92% on room air. General: He is awake, alert, and oriented. Psychiatric: He is appropriate and conversive. He appears in severe distress. Neck: Supple without JVD. Chest: Normal expansion and excursion. Cardiovascular: Tachycardia, otherwise regular rhythm. Abdomen: Distended, firm, tense, tympanic, positive global peritoneal signs. Positive rebound posit james guarding consistent with significant air in his abdomen. Extremities: No clubbing, cyanosis, or edema. Skin: Warm and dry. Laboratory Data: Revealed a white blood cell count of 11, hemoglobin is 17.0, hematocrit of 51.6, pl atelet count is 337. His chemistry; sodium is 134, potassium 3.7, chloride 100, carbon dioxide 27, B UN 15, creatinine 1.4, glucose is 113. Calcium 9.5, total bilirubin 1.5, AST 15, ALT 20, alkaline ph osphatase is 61. His lactic acid was 2.5. Lipase 310. He had a CT scan for the abdomen and pelvis performed on 07/09/2022, officially read as significant hemoperitoneum present along with pneumoperit oneum, recommend surgical consultation. He had moderate pneumoperitoneum compatible with perforated viscus. The exact location was difficult to assess on the imaging. Assessment And Plan: This is a 46-year-old male who presents with signs and symptoms of perforated v iscus/intestinal perforation. 1.IV fluid hydration. 2.Antibiotic coverage. 3.I have explained risks, benefits, and alternatives of exploratory laparotomy including but not ewing ited to bleeding, infection, damage to surrounding tissues, need further operation procedures. The p atient agrees to proceed as indicate. NAHED/ZAIN Voice ID: [id number] Report ID: [id number]
[2022-07-11] MEDS: HYDROMORPHONE HCL 2 MG/ML inj IV PRN ×6 (00:42→21:21)
[2022-07-11] MEDS: D5.45NS W/KCL 20MEQ 1,000 ML IV SCH ×4 (01:39→15:18)
--- NOTE | 2022-07-11 06:12 | P.PN ---
Date of Service: 07/11/22 Subjective: no acute events overnight dry mouth, thirsty pain intermittent, medication helping ROS: 10 point ROS as noted above, otherwise negative Physical exam GEN: Alert, oriented, NAD HEENT: Normal conjunctiva, sclera anicteric, NGT in place CV: mild sinus tachycardia, no edema Pulm: Nonlabored respirations on 1L NC ABD: Soft, nondistended, mild tenderness; Abd binder, ALEXANDRU drain Neuro: Normal speech, normal affect raymundo in place Problem List sepsis secondary to Duodenal perforation, now s/p sarah patch h/o duodenal ulcer JENI, without CKD HTN Nicotine dependence h/o alcohol dependence and recreational drug use sepsis secondary to duodenal perforation SIRS 2/: tachycardia, tachypnea; afebrile, WBC peaked at 11k qSOFA: 1 on presentation; RR: 24 s/p sarah patch by Dr. Stern on 07/09 admitted to ICU after surgery for close monitoring overnight NPO, IVF, NGT to LIWS protonix drip continue Zosyn pain control had emesis episode colton-operatively, monitor for aspiration pneumonitis/pneumonia cxr in am JENI suspect prerenal; minimal PO intake secondary to pain continue IVF improving Alcohol/recreational drug use ecstasy and cannabis usage CIWA protocol denies h/o alcohol withdrawal; last drink was ~3-4 days prior to admission HTN BP remains low, low-normal monitor for now, anti-hypertensives when needed VTE: lovenox Code: full Dispo: home, ~3-4 days
[2022-07-11] MEDS: INSULIN -REGULAR HUMAN 50 UNIT/0.5 ML ML SQ SCH ×3 (07:30→15:44)
[2022-07-11 07:46] LABS: Absolute Lymphocytes (CBC) 0.5 K/uL (0.7-4.9); Hematocrit 36.2 % (39.6-49.0); Lymphocytes % 8.3 % (15.3-44.8); MPV 8.1 fL (7.6-11.3); RBC Red Blood Cell Count 4.16 M/uL (4.33-5.43)
[2022-07-11 08:00] LABS: Albumin 2.4 g/dL (3.4-5.0); Bilirubin Total 0.9 mg/dL (0.2-1.0); Magnesium 2.9 mg/dL (1.6-2.4); Phosphorus 1.9 mg/dL (2.5-4.9); Potassium 3.9 mmol/L (3.5-5.1); Protein, Total 6.6 g/dL (6.4-8.2)
[2022-07-11] MEDS: PIPER TAZO 3.375 GM in NA CHLORIDE 0.9% 100 ML IV SCH ×2 (08:29→16:40)
[2022-07-11] MEDS: NICOTINE 21 MG/PAT TD SCH (08:29)
[2022-07-11] MEDS: ENOXAPARIN 40 MG/0.4 ML SQ SCH (08:29)
[2022-07-11] MEDS: ONDANSETRON 4 MG/2 ML VIAL IV PRN ×2 (08:42→17:56)
[2022-07-11] MEDS: PHENOL 1.4% ORAL SPRAY 180ML MM PRN ×2 (08:42→21:02)
[2022-07-11] MEDS: PANTOPRAZOLE INJ 80 MG in NA CHLORIDE 0.9% 250 ML IV SCH ×2 (08:43→17:51)
--- NOTE | 2022-07-11 08:57 | P.PN ---
Subjective Date of Service: 07/10/22 Chief Complaint: Abdominal pain. Subjective: Improving Patient had no complaints this morning other than hunger. Physical Examination - Vital Signs Temperature: 98.1 F Blood Pressure: 116/89 Pulse: 105 Respirations: 16 Pulse Ox (%): 95 - Physical Exam General: Alert, In no apparent distress, Cooperative HEENT: Mucous membr. moist/pink Respiratory: Clear to auscultation bilaterally, Diminished Cardiovascular: Other (tachycardia otherwise unremarkable) Gastrointestinal: Other (soft, mild appropriate TTP, ND, incisions clean and dry, ALEXANDRU serous, NGT in place) Neurological: Normal speech - Studies Microbiology Data (last 24 hrs): 07/09/22 16:11 Blood - Blood Anaerobic Blood Culture - Final Assessment And Plan - Plan 46 year old man s/p exploratory laparotomy with sarah patch for perforated duodenal ulcer on 07-09-2022 Gen / Neuro: Pain control adequate with current regimen patient did not require additional pain medication and did not use pain medication as frequently as available CVS: Mild tachycardia likely SIRS/sepsis Pulm: Respiratory insufficiency with low incentive spirometry function. I have reiterated the patient to use incentive spirometry with a goal of 15 cc/kg based on ideal body weight, continue cough deep breathing and respiratory exercises GI: Soft mild appropriate tenderness to palpation patient likely to have an ileus after surgery. As there was significant intra-abdominal contamination ALEXANDRU appears serous, angel luis in place NG tube remains in place FEN: IV fluids to 125 cc/h, continue electrolyte replacement protocol. Nutrition anticipate early recovery and patient's nutritional status is not compromised as such recommend continued n.p.o. at this point ID: SIRS/sepsis from intra-abdominal contamination continue Zosyn as currently ordered Tubes / Lines: NG tube to remain in place to low intermittent wall suction, ALEXANDRU drain to remain in place. Continue strict I's and O's. Phillips catheter to remain today likely removal in a.m. Prophylaxis: Protonix drip continued, Lovenox SCDs in place out of bed to chair with physical therapy PT/OT -ambulate with assist Renal: Adequate urine output at this time likely DC Phillips tomorrow Physician Review: Patient Assessed, Agree with Above Assessment and Plan
[2022-07-11] MEDS ORDERED: POTASSIUM PHOS IN 0.9 % NACL 15 MMOL/250 ML BAG IV ONE (09:20)
[2022-07-11] MEDS: FLUTICASONE 50MCG NASAL SPRAY NAS SCH ×2 (15:16→20:26)
[2022-07-11] MEDS: THIAMINE 200 MG/2 ML INJ IVP SCH (20:25)
[2022-07-12] MEDS: PIPER TAZO 3.375 GM in NA CHLORIDE 0.9% 100 ML IV SCH ×3 (00:41→18:26)
[2022-07-12] MEDS: D5.45NS W/KCL 20MEQ 1,000 ML IV SCH ×3 (00:45→16:00)
[2022-07-12] MEDS: HYDROMORPHONE HCL 2 MG/ML inj IV PRN ×6 (01:53→22:20)
[2022-07-12 05:13] LABS: Hematocrit 34.4 % (39.6-49.0); MCV 86.7 fL (80-100); MPV 8.1 fL (7.6-11.3); RBC Red Blood Cell Count 3.96 M/uL (4.33-5.43)
[2022-07-12 05:30] LABS: Albumin 2.3 g/dL (3.4-5.0); Magnesium 2.5 mg/dL (1.6-2.4); Phosphorus 2.4 mg/dL (2.5-4.9)
[2022-07-12] MEDS: PANTOPRAZOLE INJ 80 MG in NA CHLORIDE 0.9% 250 ML IV SCH ×2 (05:42→15:00)
[2022-07-12 05:52] VITALS: BMI 32.1
[2022-07-12] MEDS: INSULIN -REGULAR HUMAN 50 UNIT/0.5 ML ML SQ SCH ×4 (06:00→18:00)
[2022-07-12] MEDS: ONDANSETRON 4 MG/2 ML VIAL IV PRN ×2 (06:11→15:05)
[2022-07-12] MEDS ORDERED: POTASSIUM PHOS IN 0.9 % NACL 15 MMOL/250 ML BAG IV ONE (07:00)
[2022-07-12] MEDS: NICOTINE 21 MG/PAT TD SCH (08:07)
[2022-07-12] MEDS: ENOXAPARIN 40 MG/0.4 ML SQ SCH (08:07)
[2022-07-12] MEDS: FLUTICASONE 50MCG NASAL SPRAY NAS SCH ×2 (08:07→21:00)
[2022-07-12] MEDS: MUPIROCIN 2% OINT 22GM TUBE TOP SCH ×2 (08:08→21:00)
[2022-07-12] MEDS: THIAMINE 200 MG/2 ML INJ IVP SCH ×2 (08:08→22:20)
--- NOTE | 2022-07-12 08:41 | RAD REPORT ---
EXAM DESCRIPTION: RAD - Chest Single View - 07/12/2022 6:38 am CLINICAL HISTORY: aspiration Chest pain. COMPARISON: Chest Single View dated 03/17/2019 FINDINGS: Portable technique limits examination quality. The lungs are underinflated causing vascular crowding. The heart is upper limit normal. Enteric tube coiled in the stomach.
[2022-07-12] MEDS: HYDRALAZINE HCL 20 MG/ML VIAL IV PRN ×2 (13:40→19:42)
--- NOTE | 2022-07-12 16:58 | P.PN ---
Date of Service: 07/12/22 Subjective: no acute events overnight nasal congestion /allergies feels ok continues on NGT to SKYLA raymundo dc'polo yesterday; voiding ROS: 10 point ROS as noted above, otherwise negative Physical exam GEN: Alert, oriented, NAD HEENT: Normal conjunctiva, sclera anicteric, NGT in place, nasal congestion CV: mild sinus tachycardia, no edema Pulm: Nonlabored respirations on 2L NC ABD: Soft, nondistended, mild tenderness; Abd binder, ALEXANDRU drain Neuro: Normal speech, normal affect Problem List sepsis secondary to Duodenal perforation, now s/p sarah patch h/o duodenal ulcer JENI, without CKD HTN Nicotine dependence h/o alcohol dependence and recreational drug use sepsis secondary to duodenal perforation SIRS 2/4: tachycardia, tachypnea; afebrile, WBC peaked at 11k qSOFA: 1 on presentation; RR: 24 s/p sarah patch by Dr. Stern on 07/09 admitted to ICU after surgery for close monitoring overnight NPO, IVF, NGT to SKYLA protonix drip continue Zosyn pain control had emesis episode colton-operatively, monitor for aspiration pneumonitis/pneumonia cautious on restarting feeds; start PPN 2/3 JENI suspect prerenal; minimal PO intake secondary to pain continue IVF improving Alcohol/recreational drug use ecstasy and cannabis usage [facility] protocol denies h/o alcohol withdrawal; last drink was ~3-4 days prior to admission HTN bp uptrending, hydralazine PRN VTE: lovenox Code: full Dispo: home, ~-fri
[2022-07-12] MEDS: AA 4.25 %/D5W/ELECTROLYTES 2,000 ML, Lipids 20% 250 ML with MULTIVITAMINS INJ 10 ML IV SCH ×3 (18:20)
[2022-07-13] MEDS: PIPER TAZO 3.375 GM in NA CHLORIDE 0.9% 100 ML IV SCH ×3 (01:00→16:14)
[2022-07-13] MEDS: HYDROMORPHONE HCL 2 MG/ML inj IV PRN ×8 (01:50→22:24)
[2022-07-13] MEDS: PANTOPRAZOLE INJ 80 MG in NA CHLORIDE 0.9% 250 ML IV SCH ×3 (01:50→15:00)
[2022-07-13] MEDS: HYDRALAZINE HCL 20 MG/ML VIAL IV PRN ×2 (02:56→09:03)
[2022-07-13 04:26] LABS: Albumin 2.3 g/dL (3.4-5.0); Bilirubin Total 1.3 mg/dL (0.2-1.0); Magnesium 2.1 mg/dL (1.6-2.4); Potassium 3.7 mmol/L (3.5-5.1); Protein, Total 6.5 g/dL (6.4-8.2)
[2022-07-13] MEDS: ONDANSETRON 4 MG/2 ML VIAL IV PRN ×2 (05:15→11:02)
[2022-07-13] MEDS: INSULIN -REGULAR HUMAN 50 UNIT/0.5 ML ML SQ SCH ×4 (06:00→18:00)
[2022-07-13] MEDS ORDERED: POTASSIUM CL SA 10 MEQ TAB PO ONE (09:00)
[2022-07-13] MEDS: MUPIROCIN 2% OINT 22GM TUBE TOP SCH ×2 (09:00→21:00)
[2022-07-13] MEDS: ENOXAPARIN 40 MG/0.4 ML SQ SCH (09:02)
[2022-07-13] MEDS: NICOTINE 21 MG/PAT TD SCH (09:02)
[2022-07-13] MEDS: FLUTICASONE 50MCG NASAL SPRAY NAS SCH ×2 (09:03→22:25)
[2022-07-13] MEDS: THIAMINE 200 MG/2 ML INJ IVP SCH ×2 (09:04→22:24)
[2022-07-13 09:07] LABS: Absolute Lymphocytes (CBC) 0.9 K/uL (0.7-4.9); Hematocrit 36.8 % (39.6-49.0); Lymphocytes % 13.7 % (15.3-44.8); MCV 85.4 fL (80-100); MPV 7.6 fL (7.6-11.3); RBC Red Blood Cell Count 4.31 M/uL (4.33-5.43)
[2022-07-13 09:57] LABS: Blood Morphology Comment NOT SEEN (NOT SEEN); Platelet Estimate ADEQ
--- NOTE | 2022-07-13 10:50 | RAD REPORT ---
EXAM DESCRIPTION: RAD - Abdomen 1 View (KUB) - 07/13/2022 10:15 am CLINICAL HISTORY: Abdomen pain FINDINGS: The bowel gas pattern is unremarkable. Nasogastric coiled within the gastric fundus. Postsurgical changes involve the abdomen
[2022-07-13] MEDS ORDERED: AA 4.25 %/D5W/ELECTROLYTES 2,000 ML IV SCH (17:00)
--- NOTE | 2022-07-13 17:39 | P.PN ---
Date of Service: 07/13/22 Subjective: large foul smelling emesis overnight >600cc NGT not functioning, I attempted to flush myself, and continued to get clogged replaced this morning with >200ml out, pt felt better dry /sore throat and nose ROS: 10 point ROS as noted above, otherwise negative Physical exam GEN: Alert, oriented, NAD HEENT: Normal conjunctiva, sclera anicteric, NGT in place, nasal congestion CV: mild sinus tachycardia, no edema Pulm: Nonlabored respirations on 2L NC ABD: mildly distended (Softed after NGT replaced), mild tenderness; Abd binder, ALEXANDRU drain sanguineous Neuro: Normal speech, normal affect Problem List sepsis secondary to Duodenal perforation, now s/p sarah patch h/o duodenal ulcer JENI, without CKD HTN Nicotine dependence h/o alcohol dependence and recreational drug use sepsis secondary to duodenal perforation SIRS 2/4: tachycardia, tachypnea; afebrile, WBC peaked at 11k qSOFA: 1 on presentation; RR: 24 s/p sarah patch by Dr. Stern on 07/09 admitted to ICU after surgery for close monitoring overnight NPO, IVF, NGT to LIWS protonix drip continue Zosyn pain control had emesis episode colton-operatively, monitor for aspiration pneumonitis/pneumonia cautious on restarting feeds; start PPN 2/3 NGT not functioning overnight 07/12-07/13, replaced 2/4 AM JENI suspect prerenal; minimal PO intake secondary to pain improved, IVF changed to PPN Alcohol/recreational drug use ecstasy and cannabis usage [facility] protocol denies h/o alcohol withdrawal; last drink was ~3-4 days prior to admission HTN bp uptrending, hydralazine PRN VTE: lovenox Code: full Dispo: home, ~fri +/- a day
[2022-07-14] MEDS: AA 4.25 %/D5W/ELECTROLYTES 2,000 ML IV SCH ×2 (00:25→23:03)
[2022-07-14] MEDS: ONDANSETRON 4 MG/2 ML VIAL IV PRN ×3 (00:26→16:01)
[2022-07-14] MEDS: HYDRALAZINE HCL 20 MG/ML VIAL IV PRN ×2 (00:26→09:14)
[2022-07-14] MEDS: PIPER TAZO 3.375 GM in NA CHLORIDE 0.9% 100 ML IV SCH ×3 (01:14→16:00)
[2022-07-14] MEDS: PANTOPRAZOLE INJ 80 MG in NA CHLORIDE 0.9% 250 ML IV SCH ×3 (01:15→23:03)
[2022-07-14] MEDS: HYDROMORPHONE HCL 2 MG/ML inj IV PRN ×8 (02:35→23:32)
[2022-07-14 04:15] LABS: Hematocrit 36.3 % (39.6-49.0); Lymphocytes % 10.2 % (15.3-44.8); MCV 85.4 fL (80-100); MPV 8.4 fL (7.6-11.3); RBC Red Blood Cell Count 4.25 M/uL (4.33-5.43)
[2022-07-14 04:31] LABS: Magnesium 2.1 mg/dL (1.6-2.4); Phosphorus 3.9 mg/dL (2.5-4.9); Potassium 3.5 mmol/L (3.5-5.1)
[2022-07-14] MEDS: INSULIN -REGULAR HUMAN 50 UNIT/0.5 ML ML SQ SCH ×4 (06:00→18:00)
--- NOTE | 2022-07-14 07:14 | P.PN ---
Date of Service: 07/14/22 Subjective: No acute events overnight NG output starting to get supervisor of communications in color No flatus ROS: 10 point ROS as noted above, otherwise negative Physical exam GEN: Alert, oriented, NAD HEENT: Normal conjunctiva, sclera anicteric, NGT in place, nasal congestion CV: mild sinus tachycardia, no edema Pulm: Nonlabored respirations on 2L NC ABD: mild tenderness; Abd binder, ALEXANDRU drain serosanguineous Neuro: Normal speech, normal affect Problem List sepsis secondary to Duodenal perforation, now s/p sarah patch h/o duodenal ulcer JENI, without CKD HTN Nicotine dependence h/o alcohol dependence and recreational drug use sepsis secondary to duodenal perforation SIRS 2/4: tachycardia, tachypnea; afebrile, WBC peaked at 11k; qSOFA: 1 on presentation; RR: 24 s/p sarah patch by Dr. Stern on 07/09 NPO, TPN, NGT to LIWS protonix drip continue Zosyn pain control had emesis episode colton-operatively, monitor for aspiration pneumonitis/pneumonia cautious on restarting feeds; start PPN 2/3 NGT not functioning overnight 07/12-07/13, replaced 2/4 AM JENI prerenal; minimal PO intake secondary to pain improved, IVF changed to PPN Alcohol/recreational drug use ecstasy and cannabis usage [facility] protocol denies h/o alcohol withdrawal; last drink was ~3-4 days prior to admission HTN bp uptrending, hydralazine PRN VTE: lovenox Code: full Dispo: home, ~fri +/- a day
[2022-07-14] MEDS: MUPIROCIN 2% OINT 22GM TUBE TOP SCH ×2 (09:00→21:00)
[2022-07-14] MEDS: THIAMINE 200 MG/2 ML INJ IVP SCH ×2 (09:12→23:05)
[2022-07-14] MEDS: ENOXAPARIN 40 MG/0.4 ML SQ SCH (09:13)
[2022-07-14] MEDS: NICOTINE 21 MG/PAT TD SCH (09:13)
[2022-07-14] MEDS: FLUTICASONE 50MCG NASAL SPRAY NAS SCH ×2 (09:13→23:04)
[2022-07-15] MEDS: PIPER TAZO 3.375 GM in NA CHLORIDE 0.9% 100 ML IV SCH ×3 (00:36→16:42)
[2022-07-15] MEDS: HYDROMORPHONE HCL 2 MG/ML inj IV PRN ×9 (02:05→22:24)
[2022-07-15 04:08] LABS: Albumin 2.3 g/dL (3.4-5.0); Bilirubin Total 1.7 mg/dL (0.2-1.0); Magnesium 2.3 mg/dL (1.6-2.4); Phosphorus 3.9 mg/dL (2.5-4.9); Potassium 3.6 mmol/L (3.5-5.1); Protein, Total 6.4 g/dL (6.4-8.2)
[2022-07-15 04:20] LABS: Absolute Lymphocytes (CBC) 1.4 K/uL (0.7-4.9); Hematocrit 34.8 % (39.6-49.0); Lymphocytes % 10.2 % (15.3-44.8); MCV 85.1 fL (80-100); MPV 8.2 fL (7.6-11.3); RBC Red Blood Cell Count 4.09 M/uL (4.33-5.43)
[2022-07-15] MEDS: INSULIN -REGULAR HUMAN 50 UNIT/0.5 ML ML SQ SCH ×5 (05:57→23:31)
[2022-07-15] MEDS: ENOXAPARIN 40 MG/0.4 ML SQ SCH (07:05)
[2022-07-15] MEDS ORDERED: METHYLENE BLUE 0.5% 10 ML AMP IV ONE (09:00)
[2022-07-15] MEDS: NICOTINE 21 MG/PAT TD SCH ×2 (09:00→10:28)
[2022-07-15] MEDS: MUPIROCIN 2% OINT 22GM TUBE TOP SCH ×2 (10:27→21:05)
[2022-07-15] MEDS: PANTOPRAZOLE INJ 80 MG in NA CHLORIDE 0.9% 250 ML IV SCH ×3 (10:27→23:01)
[2022-07-15] MEDS: THIAMINE 200 MG/2 ML INJ IVP SCH ×2 (10:28→21:02)
[2022-07-15] MEDS: FLUTICASONE 50MCG NASAL SPRAY NAS SCH ×2 (10:29→21:04)
--- NOTE | 2022-07-15 13:04 | RAD REPORT ---
EXAM DESCRIPTION: RAD - Upper GI W/Air Cont W/Kub - 07/15/2022 12:52 pm CLINICAL HISTORY: Evaluate Holes in Intestine Abdominal pain COMPARISON: Abdomen Pelvis Wo Contrast dated 07/09/2022 FINDINGS: Upper GI series was performed utilizing Gastrografin. Examination was to evaluate for cont rast leakage related to repair of recent perforated ulcer. Using nasogastric tube which is in place., Gastrografin contrast was infused into the stomach. The st omach and duodenal C-loop are well opacified with contrast and visualized. There is no evidence of co ntrast leakage. Fluoroscopy time: 54 seconds Number of the images obtained, 10 IMPRESSION: No evidence of Gastrografin leakage seen from the stomach or duodenum.
[2022-07-15] MEDS: HYDRALAZINE HCL 20 MG/ML VIAL IV PRN ×2 (13:12→22:24)
[2022-07-15] MEDS: ONDANSETRON 4 MG/2 ML VIAL IV PRN (13:13)
[2022-07-15] MEDS: AA 4.25 %/D5W/ELECTROLYTES 2,000 ML, Lipids 20% 250 ML with MULTIVITAMINS INJ 10 ML IV SCH ×3 (16:43)
--- NOTE | 2022-07-15 23:20 | P.PN ---
Date of Service: 07/15/22 Subjective: No acute events overnight +flatus overall feelign better ROS: 10 point ROS as noted above, otherwise negative Physical exam GEN: Alert, oriented, NAD HEENT: Normal conjunctiva, sclera anicteric, NGT in place, nasal congestion CV: mild sinus tachycardia, no edema Pulm: Nonlabored respirations on 2L NC ABD: mild tenderness; Abd binder, ALEXANDRU drain serosanguineous Neuro: Normal speech, normal affect Problem List sepsis secondary to Duodenal perforation, now s/p sarah patch h/o duodenal ulcer JENI, without CKD HTN Nicotine dependence h/o alcohol dependence and recreational drug use sepsis secondary to duodenal perforation SIRS 2/: tachycardia, tachypnea; afebrile, WBC peaked at 11k; qSOFA: 1 on presentation; RR: 24 s/p sarah patch by Dr. Stern on 07/09 NPO, TPN, NGT to LIWS protonix drip continue Zosyn pain control had emesis episode colton-operatively, monitor for aspiration pneumonitis/pneumonia cautious on restarting feeds; start PPN 2/3 NGT not functioning overnight 07/12-07/13, replaced 2/4 AM JENI prerenal; minimal PO intake secondary to pain improved, IVF changed to PPN Alcohol/recreational drug use ecstasy and cannabis usage [facility] protocol denies h/o alcohol withdrawal; last drink was ~3-4 days prior to admission HTN bp uptrending, hydralazine PRN VTE: lovenox Code: full Dispo: home, ~ +/- a day
[2022-07-16] MEDS: HYDROMORPHONE HCL 2 MG/ML inj IV PRN ×9 (00:53→22:10)
[2022-07-16] MEDS: PIPER TAZO 3.375 GM in NA CHLORIDE 0.9% 100 ML IV SCH ×3 (01:12→17:18)
[2022-07-16 04:48] LABS: Absolute Lymphocytes (CBC) 1.5 K/uL (0.7-4.9); Hematocrit 35.4 % (39.6-49.0); MCV 84.5 fL (80-100); RBC Red Blood Cell Count 4.19 M/uL (4.33-5.43)
[2022-07-16 05:00] LABS: Magnesium 2.2 mg/dL (1.6-2.4); Potassium 3.6 mmol/L (3.5-5.1)
[2022-07-16] MEDS: INSULIN -REGULAR HUMAN 50 UNIT/0.5 ML ML SQ SCH ×3 (05:46→17:40)
[2022-07-16] MEDS ORDERED: KCL 20 MEQ/100 mL IVPB 20 MEQ/100 ML BAG IV SCH (06:00)
[2022-07-16] MEDS: MUPIROCIN 2% OINT 22GM TUBE TOP SCH ×2 (09:00→20:20)
[2022-07-16] MEDS: NICOTINE 21 MG/PAT TD SCH (09:00)
[2022-07-16] MEDS: PANTOPRAZOLE INJ 80 MG in NA CHLORIDE 0.9% 250 ML IV SCH ×2 (09:44→22:04)
[2022-07-16] MEDS: ENOXAPARIN 40 MG/0.4 ML SQ SCH (09:46)
[2022-07-16] MEDS: THIAMINE 200 MG/2 ML INJ IVP SCH ×2 (09:46→20:12)
[2022-07-16] MEDS: FLUTICASONE 50MCG NASAL SPRAY NAS SCH ×2 (09:47→20:22)
--- NOTE | 2022-07-16 12:57 | RAD REPORT ---
EXAM DESCRIPTION: CT - Chest Abd Pelvis Wo Con - 07/16/2022 10:51 am CLINICAL HISTORY: S/p Marvin patch for duodena ulcer perforation COMPARISON: Upper GI W/Air Cont W/Kub dated 07/15/2022; Abdomen Pelvis Wo Contrast dated 08/02/2021 TECHNIQUE: Axial 5 millimeter thick images of the chest, abdomen and pelvis were obtained without IV contrast. Oral contrast was administered. All CT scans are performed using dose optimization technique as appropriate and may include automated exposure control or mA/KV adjustment according to patient size. FINDINGS: Small bilateral layering pleural effusions are present. Partial atelectasis seen at each l ower lobe. No infiltrate or mass of the lung parenchyma. No endobronchial lesion. No pneumothorax. No chest wall mass or abnormal axillary lymphadenopathy seen. Mediastinal and hilar regions show no ma ss or lymphadenopathy. No pericardial thickening or effusion. The liver, spleen and pancreas show no significant findings for non contrast imaging. A 3.7 centimete r oval soft tissue density mass is present along the posterior margin of the liver unchanged from allison or imaging. This is not clinically significant. Gallbladder and biliary tree are normal. No hydronephrosis or suspicious renal mass. Isodense masses and pyelonephritis cannot be excluded on non contrast imaging. No adrenal abnormalities. Partially contracted urinary bladder shows no suspic ious finding. No gastric dilatation or gastric wall thickening. Drain tube is in place in the right upper quadrant coursing near the gallbladder fossa and an along the duodenal C-loop and gastric antrum region. There is minimal edema in the antrum and duodenal bulb. All contrast administered for the prior day upper GI study remains within the GI tract. Contrast is in the colon. Appendix is opacified. Small amount of free fluid is present in the peritoneal cavity pooling in the dependent portion of th e pelvis. A few small mesenteric lymph nodes are present. There is no abscess. No free air or pneumat osis. No hernia, mass or bulky lymphadenopathy. No significant bone or vascular finding. IMPRESSION: No abscess or surgically emergent finding. A small amount of intraperitoneal free fluid is present. No free air. No extravasation of contrast or bowel content identifiable. Small bilateral layering pleural effusions with partial atelectasis of each lower lobe. Infiltrate wi thin atelectatic lung cannot be entirely excluded. CT abdomen and pelvis imaging shows no significant or suspicious finding.
[2022-07-16] MEDS ORDERED: METHYLENE BLUE 0.5% 10 ML AMP IV ONE (14:00)
--- NOTE | 2022-07-16 15:29 | P.PN ---
Subjective Date of Service: 07/16/22 Chief Complaint: Abdominal pain. Patient denies any abdominal pain. He denies any complaint. He has been tolerating his diet. He has been afebrile. No BM. Physical Examination - Vital Signs Temperature: 97.4 F Blood Pressure: 159/98 Pulse: 92 Respirations: 18 Pulse Ox (%): 95 Assessment And Plan - Plan Physical exam GEN: Alert, oriented, NAD HEENT: Normal conjunctiva, sclera anicteric. CV: sinus tachycardia, no edema. Pulm: Clear to auscultation bilaterally. No rhonchi or wheezes. ABD: Nontender; Abd binder, ALEXANDRU drain serosanguineous Neuro: Normal speech, normal affect Problem List sepsis secondary to Duodenal perforation, now s/p sarah patch h/o duodenal ulcer JENI, without CKD HTN Nicotine dependence h/o alcohol dependence and recreational drug use sepsis secondary to duodenal perforation SIRS /: tachycardia, tachypnea; WBC 19k. s/p sarah patch by Dr. Stern on 07/09 NG tube removed, patient started on a diet, on PPN Continue protonix drip continue Zosyn. CT abdomen and pelvis and chest done due to leukocytosis is unremarkable. No abscess. Discontinue TPN once patient is able to tolerate his diet. Surgery Dr. Stern to follow. JENI prerenal; due to decreased oral intake. JENI resolved. Alcohol/recreational drug use ecstasy and cannabis usage. On [facility] protocol No symptoms of alcohol withdrawal. HTN BP has been high. Hydralazine PRN Start amlodipine VTE: lovenox Code: full Dispo: home upon discharge.
[2022-07-16] MEDS: AA 4.25 %/D5W/ELECTROLYTES 2,000 ML IV SCH (17:19)
[2022-07-16] MEDS: HYDRALAZINE HCL 20 MG/ML VIAL IV PRN (20:11)
[2022-07-16] MEDS: ONDANSETRON 4 MG/2 ML VIAL IV PRN (20:11)
[2022-07-17] MEDS: HYDROMORPHONE HCL 2 MG/ML inj IV PRN ×11 (00:14→22:42)
[2022-07-17] MEDS: PIPER TAZO 3.375 GM in NA CHLORIDE 0.9% 100 ML IV SCH (00:16)
[2022-07-17] MEDS: INSULIN -REGULAR HUMAN 50 UNIT/0.5 ML ML SQ SCH ×5 (06:00→23:59)
[2022-07-17 06:11] LABS: Absolute Lymphocytes (CBC) 1.4 K/uL (0.7-4.9); Hematocrit 33.6 % (39.6-49.0); Lymphocytes % 6.7 % (15.3-44.8); MPV 7.3 fL (7.6-11.3)
[2022-07-17 06:28] LABS: Magnesium 2.2 mg/dL (1.6-2.4); Phosphorus 4.1 mg/dL (2.5-4.9); Potassium 3.8 mmol/L (3.5-5.1)
[2022-07-17 07:00] LABS: Blood Morphology Comment NOT SEEN (NOT SEEN); Platelet Estimate INCR
[2022-07-17] MEDS: Meropenem 1,000 MG in NA CHLORIDE 0.9% 100 ML IV SCH ×2 (08:27→20:33)
[2022-07-17] MEDS: ENOXAPARIN 40 MG/0.4 ML SQ SCH (08:28)
[2022-07-17] MEDS: MUPIROCIN 2% OINT 22GM TUBE TOP SCH (08:28)
[2022-07-17] MEDS: PANTOPRAZOLE INJ 80 MG in NA CHLORIDE 0.9% 250 ML IV SCH ×2 (08:29→18:15)
[2022-07-17] MEDS: THIAMINE 200 MG/2 ML INJ IVP SCH ×2 (08:29→20:26)
[2022-07-17] MEDS: NICOTINE 21 MG/PAT TD SCH (08:30)
[2022-07-17] MEDS: FLUTICASONE 50MCG NASAL SPRAY NAS SCH ×2 (09:00→20:32)
[2022-07-17] MEDS ORDERED: KCL 20 MEQ/100 mL IVPB 20 MEQ/100 ML BAG IV SCH (09:00)
--- NOTE | 2022-07-17 13:46 | P.PN ---
Subjective Date of Service: 07/17/22 Chief Complaint: Abdominal pain. Patient denies any complaint He has been tolerating his diet. He has been afebrile. He states he has been passing gas. ALEXANDRU drain draining serous fluid. Fluid is not cloudy. Physical Examination - Vital Signs Temperature: 98.1 F Blood Pressure: 150/99 Pulse: 94 Respirations: 14 Pulse Ox (%): 97 Assessment And Plan - Plan Physical exam GEN: Alert, oriented, NAD HEENT: Normal conjunctiva, sclera anicteric. CV: sinus tachycardia, no edema. Pulm: Clear to auscultation bilaterally. No rhonchi or wheezes. ABD: Nontender; Abd binder, ALEXANDRU drain serosanguineous Neuro: Normal speech, normal affect Problem List sepsis secondary to Duodenal perforation, now s/p sarah patch h/o duodenal ulcer JENI, without CKD HTN Nicotine dependence h/o alcohol dependence and recreational drug use sepsis secondary to duodenal perforation SIRS 2/4: tachycardia, tachypnea; WBC continues to trend up. s/p sarah patch by Dr. Stern on 07/09 NG tube removed, patient tolerating diet. Discontinue PPN Continue protonix drip continue Zosyn. CT abdomen and pelvis and chest done due to leukocytosis is unremarkable. No abscess. Surgery Dr. Stern to follow. Continue to monitor CBC to follow leukocytosis. JENI prerenal; due to decreased oral intake. JENI resolved. Alcohol/recreational drug use ecstasy and cannabis usage. On [facility] protocol No symptoms of alcohol withdrawal. HTN BP has been high. Hydralazine PRN Amlodipine VTE: lovenox Code: full Dispo: home upon discharge.
[2022-07-17] MEDS: AMLODIPINE 5 MG TAB PO SCH (13:56)
[2022-07-17] MEDS: ONDANSETRON 4 MG/2 ML VIAL IV PRN (20:26)
[2022-07-18] MEDS: HYDROMORPHONE HCL 2 MG/ML inj IV PRN ×10 (01:14→23:17)
[2022-07-18 03:44] LABS: Absolute Lymphocytes (CBC) 1.6 K/uL (0.7-4.9); Hematocrit 34.2 % (39.6-49.0); Lymphocytes % 7.8 % (15.3-44.8); MCV 84.9 fL (80-100); MPV 7.9 fL (7.6-11.3); RBC Red Blood Cell Count 4.03 M/uL (4.33-5.43)
[2022-07-18 03:55] LABS: Potassium 3.9 mmol/L (3.5-5.1)
[2022-07-18] MEDS: PANTOPRAZOLE INJ 80 MG in NA CHLORIDE 0.9% 250 ML IV SCH ×2 (04:20→14:43)
[2022-07-18] MEDS: INSULIN -REGULAR HUMAN 50 UNIT/0.5 ML ML SQ SCH (06:00)
[2022-07-18] MEDS ORDERED: POTASSIUM 25 MEQ EFFERV TAB PO ONE (06:00)
[2022-07-18] MEDS: ENOXAPARIN 40 MG/0.4 ML SQ SCH (08:32)
[2022-07-18] MEDS: AMLODIPINE 5 MG TAB PO SCH (08:32)
[2022-07-18] MEDS: NICOTINE 21 MG/PAT TD SCH (08:33)
[2022-07-18] MEDS: Meropenem 1,000 MG in NA CHLORIDE 0.9% 100 ML IV SCH ×2 (08:33→20:43)
[2022-07-18] MEDS: FLUTICASONE 50MCG NASAL SPRAY NAS SCH ×2 (08:33→20:43)
[2022-07-18] MEDS: THIAMINE 200 MG/2 ML INJ IVP SCH ×2 (08:36→20:43)
[2022-07-18] MEDS: ONDANSETRON 4 MG/2 ML VIAL IV PRN (09:09)
--- NOTE | 2022-07-18 15:19 | P.PN ---
Subjective Date of Service: 07/18/22 Chief Complaint: Abdominal pain. No changes from yesterday He has been tolerating his diet. He has been afebrile He has been experiencing intermittent pain No change in leukocytosis from yesterday. Physical Examination - Vital Signs Temperature: 98.0 F Blood Pressure: 147/88 Pulse: 93 Respirations: 18 Pulse Ox (%): 92 Assessment And Plan - Plan Physical exam GEN: Alert, oriented, NAD HEENT: Normal conjunctiva, sclera anicteric. CV: sinus tachycardia, no edema. Pulm: Clear to auscultation bilaterally. No rhonchi or wheezes. ABD: Nontender; Abd binder, ALEXANDRU drain serosanguineous Neuro: Normal speech, normal affect Problem List sepsis secondary to Duodenal perforation, now s/p sarah patch h/o duodenal ulcer JENI, without CKD HTN Nicotine dependence h/o alcohol dependence and recreational drug use sepsis secondary to duodenal perforation Marked leukocytosis s/p sarah patch by Dr. Stern on 07/09 NG tube removed, patient tolerating diet. PPN discontinued. Continue protonix drip Antibiotics changed to IV meropenem due to leukocytosis which was not responding to treatment Blood cultures have yielded no growth. CT abdomen and pelvis and chest done due to leukocytosis is unremarkable. No abscess. Surgery Dr. Stern is following. Continue to monitor CBC to follow leukocytosis. JENI prerenal; due to decreased oral intake. JENI resolved. Alcohol/recreational drug use ecstasy and cannabis usage. On CIWA protocol No symptoms of alcohol withdrawal. HTN Hydralazine PRN Started amlodipine VTE: lovenox Code: full Dispo: home upon discharge.
[2022-07-19] MEDS: PANTOPRAZOLE INJ 80 MG in NA CHLORIDE 0.9% 250 ML IV SCH ×3 (01:41→22:56)
[2022-07-19] MEDS: HYDROMORPHONE HCL 2 MG/ML inj IV PRN ×6 (02:06→22:48)
[2022-07-19 04:17] LABS: Absolute Lymphocytes (CBC) 1.7 K/uL (0.7-4.9); Hematocrit 32.3 % (39.6-49.0); Lymphocytes % 9.1 % (15.3-44.8); MCV 84.4 fL (80-100); MPV 7.4 fL (7.6-11.3); RBC Red Blood Cell Count 3.83 M/uL (4.33-5.43)
[2022-07-19 04:31] LABS: Potassium 3.9 mmol/L (3.5-5.1)
[2022-07-19] MEDS: Meropenem 1,000 MG in NA CHLORIDE 0.9% 100 ML IV SCH ×2 (08:41→16:28)
[2022-07-19] MEDS: AMLODIPINE 5 MG TAB PO SCH (08:45)
[2022-07-19] MEDS: THIAMINE 200 MG/2 ML INJ IVP SCH ×2 (08:45→21:10)
[2022-07-19] MEDS: ENOXAPARIN 40 MG/0.4 ML SQ SCH (08:45)
[2022-07-19] MEDS: FLUTICASONE 50MCG NASAL SPRAY NAS SCH ×2 (08:48→21:00)
[2022-07-19] MEDS: NICOTINE 21 MG/PAT TD SCH (08:48)
[2022-07-19] MEDS ORDERED: POTASSIUM CL SA 10 MEQ TAB PO ONE (09:00)
--- NOTE | 2022-07-19 13:06 | RAD REPORT ---
EXAM DESCRIPTION: CT - Abdomen Pelvis Wo Contrast - 07/19/2022 12:10 pm CLINICAL HISTORY: Abdominal pain COMPARISON: June 2022 TECHNIQUE: Computed axial tomography of the abdomen and pelvis was obtained. IV was not requested. O ral contrast was given. Coronal reconstructions performed. All CT scans are performed using dose optimization technique as appropriate and may include automated exposure control or mA/KV adjustment according to patient size. FINDINGS: The evaluation of solid organs and vessels is limited secondary to the lack of contrast a dministration. Small bilateral pleural effusions with basilar atelectasis Liver, spleen, pancreas, adrenals and kidneys grossly normal. Thickening of the wall of the proximal duodenum. No extravasation of contrast seen. 7.5 centimeter fluid collection within the pelvis between the rectum and bladder. A 6.4 centimeter fluid collection subhepatic space. Ill-defined smaller fluid collection left subphrenic space. IMPRESSION: Thickening of the wall of the proximal duodenum consistent with inflammation. No extrava sation of contrast seen. Three fluid collections within the abdomen and pelvis. These likely represent abscesses. The largest lies within the pelvis between rectum and bladder
--- NOTE | 2022-07-19 13:32 | CON ---
History Of Present Illness: This is a 46-year-old male I was consulted for persistent leukocytosis. Patient had surgery done for perforated bowel. Patient has significant past medical history of hype rtension and duodenal ulcer, drug abuse, nicotine dependence, alcohol abuse. Had surgical interventi on done on July 09. Feels much better today. Is able to pass gas. Past Medical History: As above. Social History: Tobacco positive. Alcohol positive. Recreational drug dependence. Family History: Noncontributory. Medications: Meropenem. See MAR for other medications. Allergies: SHELLFISH. Review of Systems: A 10-point review was performed. Physical Examination: General: This is a 46-year-old male, lying in bed, not in any acute cardiopulmonary distress. Vital Signs: Temperature 97, pulse 90, respirations 18, blood pressure 141/96. HEENT: Unremarkable. Neck: Supple. Lungs: Clear to auscultation. Heart: S1, S2. Regular. Abdomen: Soft. Surgical wound noted. Extremity: No edema Laboratory Data: WBC 18.6, hemoglobin 10.7, platelets 574. Chemistry shows BUN of 14, creatinine 0. 7. Micro data shows blood cultures are negative. CT abdomen and chest and pelvis shows patient has no free air. No abscess. A small pleural effusion bilaterally. Assessment And Plan: Status post duodenal ulcer perforation and surgical intervention. Patient is d oing well. Leukocytosis is persistent. We will recommend to add Flagyl. Continue meropenem. Alison nue current treatment. Monitor signs of infection with fever and WBC trends. Total course should be 2 weeks. We will follow closely. Thank you, Dr. Gunn, for consult. NF/MODL Voice ID: [id number] Report ID: [id number]
[2022-07-19] MEDS ORDERED: HYDROMORPHONE HCL 2 MG/ML inj IV PRN (14:41)
--- NOTE | 2022-07-19 14:41 | P.PN ---
Subjective Date of Service: 07/19/22 Chief Complaint: Abdominal pain. No changes from yesterday He has been tolerating diet. No recorded fever Leukocytosis trending down Physical Examination - Vital Signs Temperature: 98.8 F Blood Pressure: 158/106 Pulse: 102 Respirations: 18 Pulse Ox (%): 97 Assessment And Plan - Plan Physical exam GEN: Alert, oriented, NAD HEENT: Normal conjunctiva, sclera anicteric. CV: sinus tachycardia, no edema. Pulm: Clear to auscultation bilaterally. No rhonchi or wheezes. ABD: Nontender; Abd binder, ALEXANDRU drain serosanguineous Neuro: Normal speech, normal affect Problem List sepsis secondary to Duodenal perforation, now s/p sarah patch h/o duodenal ulcer JENI, without CKD HTN Nicotine dependence h/o alcohol dependence and recreational drug use sepsis secondary to duodenal perforation Marked leukocytosis trending down after changing antibiotics to IV meropenem s/p sarah patch by Dr. Stern on 07/09 NG tube removed, patient tolerating diet. PPN discontinued. Continue protonix drip Blood cultures have yielded no growth. CT abdomen and pelvis and chest 07/16 unremarkable. No abscess. Repeat CT 07/19 shows 3 intra-abdominal abscesses Surgery Dr. Stern is following. Infectious disease consulted. Continue IV meropenem and Flagyl Patient may need IR drainage. Continue to monitor CBC to follow leukocytosis. Pain management as needed. JENI prerenal; due to decreased oral intake. JENI resolved. Alcohol/recreational drug use ecstasy and cannabis usage. On CIWA protocol No symptoms of alcohol withdrawal. HTN Hydralazine PRN Started amlodipine VTE: lovenox Code: full Dispo: home upon discharge.
[2022-07-19] MEDS: METRONIDAZOLE 500mg IVPB 500 MG/100 ML BAG IV SCH (16:28)
[2022-07-20] MEDS: Meropenem 1,000 MG in NA CHLORIDE 0.9% 100 ML IV SCH ×3 (00:21→16:25)
[2022-07-20] MEDS: METRONIDAZOLE 500mg IVPB 500 MG/100 ML BAG IV SCH ×3 (00:23→16:25)
[2022-07-20] MEDS: HYDROMORPHONE HCL 2 MG/ML inj IV PRN ×6 (02:32→21:59)
[2022-07-20 05:12] LABS: Absolute Lymphocytes (CBC) 1.5 K/uL (0.7-4.9); Hematocrit 28.3 % (39.6-49.0); Lymphocytes % 10.6 % (15.3-44.8); MCV 83.9 fL (80-100); MPV 7.3 fL (7.6-11.3); RBC Red Blood Cell Count 3.37 M/uL (4.33-5.43)
[2022-07-20 05:29] LABS: Potassium 3.9 mmol/L (3.5-5.1)
[2022-07-20] MEDS: THIAMINE 200 MG/2 ML INJ IVP SCH ×2 (08:23→20:39)
[2022-07-20] MEDS: ENOXAPARIN 40 MG/0.4 ML SQ SCH (08:23)
[2022-07-20] MEDS: AMLODIPINE 5 MG TAB PO SCH (08:23)
[2022-07-20] MEDS: FLUTICASONE 50MCG NASAL SPRAY NAS SCH ×2 (08:26→20:40)
[2022-07-20] MEDS: NICOTINE 21 MG/PAT TD SCH (08:27)
[2022-07-20] MEDS ORDERED: POTASSIUM CL SA 10 MEQ TAB PO ONE (09:00)
[2022-07-20] MEDS: PANTOPRAZOLE INJ 80 MG in NA CHLORIDE 0.9% 250 ML IV SCH ×2 (09:13→20:39)
--- NOTE | 2022-07-20 11:10 | P.PN ---
Subjective Date of Service: 07/11/22 Chief Complaint: Abdominal pain. Patient had no complaints this morning other than hunger. Physical Examination - Vital Signs Temperature: 98.4 F Blood Pressure: 145/83 Pulse: 88 Respirations: 16 Pulse Ox (%): 97 - Physical Exam General: Alert, In no apparent distress, Cooperative Respiratory: Clear to auscultation bilaterally, Normal air movement Gastrointestinal: Other (soft, mild appropriate TTP, ND, Incision clean, angel luis in place, ALEXANDRU - serous only) Assessment And Plan - Plan 46 year old man s/p exploratory laparotomy with sarah patch for perforated duodenal ulcer on 07-09-2022 Gen / Neuro: Pain control adequate with current regimen patient did not require additional pain medication and did not use pain medication as frequently as available CVS: Mild tachycardia likely SIRS/sepsis Pulm: Respiratory insufficiency with low incentive spirometry function. I have reiterated the patient to use incentive spirometry with a goal of 15 cc/kg based on ideal body weight, continue cough deep breathing and respiratory exercises GI: Soft mild appropriate tenderness to palpation patient likely to have an ileus after surgery. As there was significant intra-abdominal contamination ALEXANDRU appears serous, angel luis in place NG tube remains in place FEN: IV fluids to 125 cc/h, continue electrolyte replacement protocol. Nutrition anticipate early recovery and patient's nutritional status is not compromised as such recommend continued n.p.o. at this point ID: SIRS/sepsis from intra-abdominal contamination continue Zosyn as currently ordered Tubes / Lines: NG tube to remain in place to low intermittent wall suction, ALEXANDRU drain to remain in place. Continue strict I's and O's. Phillips catheter to remain today likely removal in a.m. Prophylaxis: Protonix drip continued, Lovenox SCDs in place out of bed to chair with physical therapy PT/OT -ambulate with assist Renal: Adequate urine output at this time likely DC Phillips tomorrow Physician Review: Patient Assessed, Agree with Above Assessment and Plan
--- NOTE | 2022-07-20 11:12 | P.PN ---
Date of Service: 07/12/22 [facility] Progress Note Patient Name: LAUREN VASQUEZ Date of : 73 Patient Status: Inpatient Attending Provider: Sheldon Bernal Date: 07/12/22 11:09 Initialization Date: 07/12/22 11:09 Subjective Date of Service: 07/12/22 Chief Complaint: Abdominal pain. Patient had no complaints this morning other than hunger. Physical Examination - Vital Signs Temperature: 98.4 F Blood Pressure: 145/83 Pulse: 88 Respirations: 16 Pulse Ox (%): 97 - Physical Exam General: Alert, In no apparent distress, Cooperative Respiratory: Clear to auscultation bilaterally, Normal air movement Gastrointestinal: Other (soft, mild appropriate TTP, ND, Incision clean, angel luis in place, ALEXANDRU - serous only) Assessment And Plan - Plan 46 year old man s/p exploratory laparotomy with sarah patch for perforated duodenal ulcer on 07-09-2022 Gen / Neuro: Pain control adequate with current regimen patient did not require additional pain medication and did not use pain medication as frequently as available CVS: Mild tachycardia likely SIRS/sepsis Pulm: Respiratory insufficiency with low incentive spirometry function. I have reiterated the patient to use incentive spirometry with a goal of 15 cc/kg based on ideal body weight, continue cough deep breathing and respiratory exercises GI: Soft mild appropriate tenderness to palpation patient likely to have an ileus after surgery. As there was significant intra-abdominal contamination ALEXANDRU appears serous, angel luis in place NG tube remains in place FEN: IV fluids to 125 cc/h, continue electrolyte replacement protocol. Nutrition anticipate early recovery and patient's nutritional status is not compromised as such recommend continued n.p.o. at this point ID: SIRS/sepsis from intra-abdominal contamination continue Zosyn as currently ordered Tubes / Lines: NG tube to remain in place to low intermittent wall suction, ALEXANDRU drain to remain in place. Continue strict I's and O's. Phillips catheter dc Prophylaxis: Protonix drip continued, Lovenox SCDs in place out of bed to chair with physical therapy PT/OT -ambulate with assist Renal: Adequate urine output Physician Review: Patient Assessed, Agree with Above Assessment and Plan
--- NOTE | 2022-07-20 11:13 | P.PN ---
Date of Service: 07/13/22 [facility] Live Progress Note Patient Name: LAUREN VASQUEZ Date of : 73 Patient Status: Inpatient Attending Provider: Sheldon Bernal Date: 07/13/22 11:09 Initialization Date: 07/13/22 11:09 Subjective Date of Service: 07/13/22 Chief Complaint: Abdominal pain. Patient had no complaints this morning other than hunger. Physical Examination - Vital Signs Temperature: 98.4 F Blood Pressure: 145/83 Pulse: 88 Respirations: 16 Pulse Ox (%): 97 - Physical Exam General: Alert, In no apparent distress, Cooperative Respiratory: Clear to auscultation bilaterally, Normal air movement Gastrointestinal: Other (soft, mild appropriate TTP, ND, Incision clean, angel luis in place, ALEXANDRU - serous only) Assessment And Plan - Plan 46 year old man s/p exploratory laparotomy with sarah patch for perforated duodenal ulcer on 07-09-2022 Gen / Neuro: Pain control adequate with current regimen patient did not require additional pain medication and did not use pain medication as frequently as available CVS: Mild tachycardia likely SIRS/sepsis Pulm: Respiratory insufficiency with low incentive spirometry function. I have reiterated the patient to use incentive spirometry with a goal of 15 cc/kg based on ideal body weight, continue cough deep breathing and respiratory exercises GI: Soft mild appropriate tenderness to palpation patient likely to have an ileus after surgery. As there was significant intra-abdominal contamination ALEXANDRU appears serous, angel luis in place NG tube remains in place FEN: IV fluids to 125 cc/h, continue electrolyte replacement protocol. Nutrition anticipate early recovery and patient's nutritional status is not compromised as such recommend continued n.p.o. at this point ID: SIRS/sepsis from intra-abdominal contamination continue Zosyn as currently ordered Tubes / Lines: NG tube to remain in place to low intermittent wall suction, ALEXANDRU drain to remain in place. Continue strict I's and O's. Phillips catheter dc Prophylaxis: Protonix drip continued, Lovenox SCDs in place out of bed to chair with physical therapy PT/OT -ambulate with assist Renal: Adequate urine output Physician Review: Patient Assessed, Agree with Above Assessment and Plan
--- NOTE | 2022-07-20 11:15 | P.PN ---
Date of Service: 07/15/22 [facility] Live Progress Note Patient Name: LAUREN VASQUEZ Date of : 73 Patient Status: Inpatient Attending Provider: Sheldon Bernal Date: 07/15/22 11:09 Initialization Date: 07/15/22 11:09 Subjective Date of Service: 07/15/22 Chief Complaint: Abdominal pain. Patient had no complaints this morning other than hunger. Physical Examination - Vital Signs Temperature: 98.4 F Blood Pressure: 145/83 Pulse: 88 Respirations: 16 Pulse Ox (%): 97 - Physical Exam General: Alert, In no apparent distress, Cooperative Respiratory: Clear to auscultation bilaterally, Normal air movement Gastrointestinal: Other (soft, mild appropriate TTP, ND, Incision clean, angel luis in place, ALEXANDRU - serous only) Assessment And Plan - Plan 46 year old man s/p exploratory laparotomy with sarah patch for perforated duodenal ulcer on 07-09-2022 Gen / Neuro: Pain control adequate with current regimen patient did not require additional pain medication and did not use pain medication as frequently as available CVS: Mild tachycardia likely SIRS/sepsis Pulm: Respiratory insufficiency with low incentive spirometry function. I have reiterated the patient to use incentive spirometry with a goal of 15 cc/kg based on ideal body weight, continue cough deep breathing and respiratory exercises GI: Soft mild appropriate tenderness to palpation patient likely to have an ileus after surgery. As there was significant intra-abdominal contamination ALEXANDRU appears serous, angel luis in place NG tube remains in place, no leak on imaging study, methylene blue given PO, no leak in ALEXANDRU FEN: IV fluids to 125 cc/h, continue electrolyte replacement protocol. Nutrit ion anticipate early recovery and patient's nutritional status is not compromised as such recommend continued n.p.o. at this point ID: SIRS/sepsis from intra-abdominal contamination continue Zosyn as currently ordered Tubes / Lines: NG tube to remain in place to low intermittent wall suction, ALEXANDRU drain to remain in place. Continue strict I's and O's. Phillips catheter dc Prophylaxis: Protonix drip continued, Lovenox SCDs in place out of bed to chair with physical therapy PT/OT -ambulate with assist Renal: Adequate urine output Physician Review: Patient Assessed, Agree with Above Assessment and Plan
--- NOTE | 2022-07-20 11:16 | P.PN ---
Date of Service: 07/16/22 [facility] Live Progress Note Patient Name: LAUREN VASQUEZ Date of : 73 Patient Status: Inpatient Attending Provider: Sheldon Bernal Date: 07/16/22 11:09 Initialization Date: 07/16/22 11:09 Subjective Date of Service: 07/16/22 Chief Complaint: Abdominal pain. Patient had no complaints this morning other than hunger. Physical Examination - Vital Signs Temperature: 98.4 F Blood Pressure: 145/83 Pulse: 88 Respirations: 16 Pulse Ox (%): 97 - Physical Exam General: Alert, In no apparent distress, Cooperative Respiratory: Clear to auscultation bilaterally, Normal air movement Gastrointestinal: Other (soft, mild appropriate TTP, ND, Incision clean, angel luis in place, ALEXANDRU - serous only) Assessment And Plan - Plan 46 year old man s/p exploratory laparotomy with sarah patch for perforated duodenal ulcer on 07-09-2022 Gen / Neuro: Pain control adequate with current regimen patient did not require additional pain medication and did not use pain medication as frequently as available CVS: Mild tachycardia likely SIRS/sepsis Pulm: Respiratory insufficiency with low incentive spirometry function. I have reiterated the patient to use incentive spirometry with a goal of 15 cc/kg based on ideal body weight, continue cough deep breathing and respiratory exercises GI: Soft mild appropriate tenderness to palpation patient likely to have an ileus after surgery. As there was significant intra-abdominal contamination ALEXANDRU appears serous, angel luis in place NG tube remains in place, no leak on imaging study, methylene blue given PO, no leak in ALEXANDRU FEN: IV fluids to 125 cc/h, continue electrolyte replacement protocol. Nutrit ion anticipate early recovery and patient's nutritional status is not compromised as such recommend continued n.p.o. at this point ID: SIRS/sepsis from intra-abdominal contamination continue Zosyn as currently ordered, leukocytosis persists, CT non-diagnostic - possible developing abscesses in abdomen/ pelvis Tubes / Lines: NG tube to remain in place to low intermittent wall suction, ALEXANDRU drain to remain in place. Continue strict I's and O's. Phillips catheter dc Prophylaxis: Protonix drip continued, Lovenox SCDs in place out of bed to chair with physical therapy PT/OT -ambulate with assist Renal: Adequate urine output Physician Review: Patient Assessed, Agree with Above Assessment and Plan
--- NOTE | 2022-07-20 11:17 | P.PN ---
Date of Service: 07/17/22 [facility] Live Progress Note Patient Name: LAUREN VASQUEZ Date of : 73 Patient Status: Inpatient Attending Provider: Sheldon Bernal Date: 07/17/22 11:09 Initialization Date: 07/17/22 11:09 Subjective Date of Service: 07/17/22 Chief Complaint: Abdominal pain. Patient had no complaints this morning, tolerating liquid diet well Physical Examination - Vital Signs Temperature: 98.4 F Blood Pressure: 145/83 Pulse: 88 Respirations: 16 Pulse Ox (%): 97 - Physical Exam General: Alert, In no apparent distress, Cooperative Respiratory: Clear to auscultation bilaterally, Normal air movement Gastrointestinal: Other (soft, mild appropriate TTP, ND, Incision clean, angel luis in place, ALEXANDRU - serous only) Assessment And Plan - Plan 46 year old man s/p exploratory laparotomy with sarah patch for perforated duodenal ulcer on 07-09-2022 Gen / Neuro: Pain control adequate with current regimen patient did not require additional pain medication and did not use pain medication as frequently as available CVS: Mild tachycardia likely SIRS/sepsis Pulm: Respiratory insufficiency with low incentive spirometry function. I have reiterated the patient to use incentive spirometry with a goal of 15 cc/kg based on ideal body weight, continue cough deep breathing and respiratory exercises GI: Soft mild appropriate tenderness to palpation patient likely to have an ileus after surgery. As there was significant intra-abdominal contamination ALEXANDRU appears serous, angel luis in place NG tube remains in place, no leak on imaging study, methylene blue given PO, no leak in ALEXANDRU FEN: IV fluids to 125 cc/h, continue electrolyte replacement protocol. Nutrition anticipate early recovery and patient's nutritional status is not compromised as such recommend continued n.p.o. at this point ID: SIRS/sepsis from intra-abdominal contamination continue Zosyn as currently ordered, leukocytosis persists, CT non-diagnostic - possible developing abscesses in abdomen/ pelvis Tubes / Lines: NG tube to remain in place to low intermittent wall suction, ALEXANDRU drain to remain in place. Continue strict I's and O's. Phillips catheter dc Prophylaxis: Protonix drip continued, Lovenox SCDs in place out of bed to chair with physical therapy PT/OT -ambulate with assist Renal: Adequate urine output Physician Review: Patient Assessed, Agree with Above Assessment and Plan
--- NOTE | 2022-07-20 11:18 | P.PN ---
Date of Service: 07/18/22 [facility] Live Progress Note Patient Name: LAUREN VASQUEZ Date of : 73 Patient Status: Inpatient Attending Provider: Sheldon Bernal Date: 07/18/22 11:09 Initialization Date: 07/18/22 11:09 Subjective Date of Service: 07/18/22 Chief Complaint: Abdominal pain. Patient had no complaints this morning, tolerating liquid diet well Physical Examination - Vital Signs Temperature: 98.4 F Blood Pressure: 145/83 Pulse: 88 Respirations: 16 Pulse Ox (%): 97 - Physical Exam General: Alert, In no apparent distress, Cooperative Respiratory: Clear to auscultation bilaterally, Normal air movement Gastrointestinal: Other (soft, mild appropriate TTP, ND, Incision clean, angel luis in place, ALEXANDRU - serous only) Assessment And Plan - Plan 46 year old man s/p exploratory laparotomy with sarah patch for perforated duodenal ulcer on 07-09-2022 Gen / Neuro: Pain control adequate with current regimen patient did not require additional pain medication and did not use pain medication as frequently as available CVS: Mild tachycardia likely SIRS/sepsis Pulm: Respiratory insufficiency with low incentive spirometry function. I have reiterated the patient to use incentive spirometry with a goal of 15 cc/kg based on ideal body weight, continue cough deep breathing and respiratory exercises GI: Soft mild appropriate tenderness to palpation patient likely to have an ileus after surgery. As there was significant intra-abdominal contamination ALEXANDRU appears serous, angel luis in place NG tube remains in place, no leak on imaging study, methylene blue given PO, no leak in ALEXANDRU FEN: continue electrolyte replacement protocol. advancing diet to fulls / soft ID: SIRS/sepsis from intra-abdominal contamination continue Zosyn as currently ordered, leukocytosis persists, CT non-diagnostic - possible developing abscesses in abdomen/ pelvis Tubes / Lines: NG tube to remain in place to low intermittent wall suction, ALEXANDRU drain to remain in place. Continue strict I's and O's. Phillips catheter dc Prophylaxis: Protonix drip continued, Lovenox SCDs in place out of bed to chair with physical therapy PT/OT -ambulate with assist Renal: Adequate urine output Physician Review: Patient Assessed, Agree with Above Assessment and Plan
--- NOTE | 2022-07-20 11:21 | P.PN ---
Date of Service: 07/19/22 [facility] Live Progress Note Patient Name: LAUREN VASQUEZ Date of : 73 Patient Status: Inpatient Attending Provider: Sheldon Bernal Date: 07/19/22 11:09 Initialization Date: 07/19/22 11:09 Subjective Date of Service: 07/19/22 Chief Complaint: Abdominal pain. Patient had no complaints this morning, tolerating liquid diet well Physical Examination - Vital Signs Temperature: 98.4 F Blood Pressure: 145/83 Pulse: 88 Respirations: 16 Pulse Ox (%): 97 - Physical Exam General: Alert, In no apparent distress, Cooperative Respiratory: Clear to auscultation bilaterally, Normal air movement Gastrointestinal: Other (soft, mild appropriate TTP, ND, Incision clean, angel luis in place, ALEXANDRU - serous only) Assessment And Plan - Plan 46 year old man s/p exploratory laparotomy with sarah patch for perforated duodenal ulcer on 07-09-2022 Gen / Neuro: Pain control adequate with current regimen patient did not require additional pain medication and did not use pain medication as frequently as available CVS: Mild tachycardia likely SIRS/sepsis Pulm: Respiratory insufficiency with low incentive spirometry function. I have reiterated the patient to use incentive spirometry with a goal of 15 cc/kg based on ideal body weight, continue cough deep breathing and respiratory exercises GI: Soft mild appropriate tenderness to palpation patient likely to have an ileus after surgery. As there was significant intra-abdominal contamination, angel luis in place NG tube remains in place, no leak on imaging study, ALEXANDRU removed yesterday FEN: continue electrolyte replacement protocol. advancing diet to fulls / soft ID: SIRS/sepsis from intra-abdominal contamination continue Zosyn as currently ordered, leukocytosis persists, repeat CT scan displayed 2 fluid collections, possible abscesses - consult ID, see if collections are amenable to percutaneous drainage, Dr. Gunn to discuss with radiology. Tubes / Lines: NG removed Continue strict I's and O's. Phillips catheter dc Prophylaxis: Protonix drip continued, Lovenox SCDs in place out of bed to chair with physical therapy PT/OT -ambulate with assist Renal: Adequate urine output Physician Review: Patient Assessed, Agree with Above Assessment and Plan
--- NOTE | 2022-07-20 11:27 | P.PN ---
Subjective Date of Service: 07/20/22 Chief Complaint: s/p Marvin patch Subjective: Improving (Patient has no pain, tolerating diet well -soft, no complaints) . Physical Examination - Vital Signs Temperature: 98.4 F Blood Pressure: 145/83 Pulse: 88 Respirations: 16 Pulse Ox (%): 97 - Physical Exam General: Alert, In no apparent distress, Cooperative Respiratory: Clear to auscultation bilaterally, Normal air movement Cardiovascular: Regular rate/rhythm Gastrointestinal: Soft and benign, Non-distended, No ascites, No tenderness, No masses, No rebound, No guarding Assessment And Plan - Plan 46 year old man s/p exploratory laparotomy with marvin patch for perforated duodenal ulcer on 07-09-2022 Gen / Neuro: Pain control adequate with current regimen CVS: Mild tachycardia likely SIRS/sepsis intermtittently Pulm: Respiratory insufficiency with low incentive spirometry function. I have reiterated the patient to use incentive spirometry with a goal of 15 cc/kg based on ideal body weight, continue cough deep breathing and respiratory exercises GI: intra-abdominal collections, but no tenderness, continue antibiotics FEN:, continue electrolyte replacement protocol. soft diet doing well, normal bowel function, no GI complaints. ID: SIRS/sepsis from intra-abdominal contamination continue antibioitcs per Dr. Briceño recommendations Prophylaxis: Protonix drip continued, Lovenox SCDs in place out of bed to chair with physical therapy PT/OT -ambulate with assist -Patient has intra-abdominal abscess/fluid collections. They are located in the subhepatic space and pelvis these are currently treated with antibiotics we will await radiologist opinion to see if these are amenable to percutaneous drainage however I feel that is unlikely given their position and as such I recommend continued antibiotic treatment per Dr. Sanchez's recommendations. If patient shows any signs of worsening clinical condition I have discussed the possibility of diagnostic laparoscopy and drainage of the abdominal fluid collections with the patient however he currently would prefer not to proceed with any surgical intervention and would like to course of antibiotics as he states he feels fine and continues to have no abdominal pain is tolerating diet well having normal bowel function. I do not see an urgent need for surgical intervention at this time however will remain vigilant and monitor patient's clinical condition if any signs of worsening occur we can revisit this at that time. Physician Review: Patient Assessed, Agree with Above Assessment and Plan
--- NOTE | 2022-07-20 14:54 | P.PN ---
Subjective Date of Service: 07/20/22 Chief Complaint: s/p Marvin patch Patient denies any complaint. He has been tolerating diet. No recorded fever Leukocytosis continue to trend down. Physical Examination - Vital Signs Temperature: 97.8 F Blood Pressure: 141/87 Pulse: 85 Respirations: 16 Pulse Ox (%): 97 Assessment And Plan - Plan Physical exam GEN: Alert, oriented, NAD HEENT: Normal conjunctiva, sclera anicteric. CV: sinus tachycardia, no edema. Pulm: Clear to auscultation bilaterally. No rhonchi or wheezes. ABD: Nontender; Abd binder, ALEXANDRU drain- serous fluid Neuro: Normal speech, normal affect Problem List sepsis secondary to Duodenal perforation, now s/p marvin patch h/o duodenal ulcer JENI, without CKD HTN Nicotine dependence h/o alcohol dependence and recreational drug use sepsis secondary to duodenal perforation Marked leukocytosis trending down after changing antibiotics to IV meropenem s/p marvin patch by Dr. Stern on 07/09 NG tube removed, patient tolerating diet. PPN discontinued. Continue protonix drip Blood cultures have yielded no growth. CT abdomen and pelvis and chest 07/16 unremarkable. No abscess. Repeat CT 07/19 shows 3 intra-abdominal abscesses. Radiology to evaluate for IR drain. Dr. Sandra will evaluate patient on Sunday 07/23. Surgery Dr. Stern is following. Infectious disease input appreciated. Continue IV meropenem and Flagyl Continue to monitor CBC to follow leukocytosis. Pain management as needed. JENI prerenal; due to decreased oral intake. JENI resolved. Alcohol/recreational drug use ecstasy and cannabis usage. No symptoms of alcohol withdrawal. HTN Hydralazine PRN On amlodipine VTE: lovenox Code: full Dispo: home upon discharge.
[2022-07-21] MEDS: Meropenem 1,000 MG in NA CHLORIDE 0.9% 100 ML IV SCH ×3 (00:12→16:36)
[2022-07-21] MEDS: METRONIDAZOLE 500mg IVPB 500 MG/100 ML BAG IV SCH ×3 (00:16→16:36)
[2022-07-21] MEDS: HYDROMORPHONE HCL 2 MG/ML inj IV PRN ×6 (01:45→22:02)
[2022-07-21 05:03] LABS: Absolute Lymphocytes (CBC) 1.5 K/uL (0.7-4.9); Lymphocytes % 13.5 % (15.3-44.8); MCV 84.9 fL (80-100); MPV 7.3 fL (7.6-11.3); RBC Red Blood Cell Count 3.29 M/uL (4.33-5.43)
[2022-07-21] MEDS: PANTOPRAZOLE INJ 80 MG in NA CHLORIDE 0.9% 250 ML IV SCH ×2 (05:46→14:34)
[2022-07-21] MEDS: THIAMINE 200 MG/2 ML INJ IVP SCH ×2 (08:28→21:14)
[2022-07-21] MEDS: ENOXAPARIN 40 MG/0.4 ML SQ SCH (08:28)
[2022-07-21] MEDS: AMLODIPINE 5 MG TAB PO SCH (08:28)
[2022-07-21] MEDS: FLUTICASONE 50MCG NASAL SPRAY NAS SCH ×2 (08:29→21:00)
[2022-07-21] MEDS: NICOTINE 21 MG/PAT TD SCH (08:30)
--- NOTE | 2022-07-21 11:11 | P.PN ---
Subjective Date of Service: 07/21/22 Chief Complaint: s/p Marvin patch Patient feels well, no pain, tolerating soft diet, ambulatory, normal bowel function, had serous drainage from inferior pole of abdominal incision. Physical Examination - Vital Signs Temperature: 97.9 F Blood Pressure: 150/89 Pulse: 95 Respirations: 18 Pulse Ox (%): 95 - Physical Exam General: Alert, In no apparent distress, Cooperative Neck: Supple Respiratory: Clear to auscultation bilaterally, Normal air movement Cardiovascular: Regular rate/rhythm Gastrointestinal: Soft and benign, Non-distended, No ascites, No tenderness, No masses, No rebound, No guarding, Other (1 staple removed, minimal serosanguanous drainge after probing, fascia intact) Assessment And Plan - Plan 46 year old man s/p exploratory laparotomy with marvin patch for perforated duodenal ulcer on 07-09-2022 Gen / Neuro: Pain control adequate with current regimen CVS: RRR Pulm: Respiratory insufficiency resolved, I have reiterated the patient to use incentive spirometry with a goal of 15 cc/kg based on ideal body weight, continue cough deep breathing and respiratory exercises GI: intra-abdominal collections, but no tenderness, continue antibiotics, incision opened slightly, no signs of infection, continue packing with 1/4" iodoform daily, and dry gauze. FEN:, continue electrolyte replacement protocol. soft diet doing well, normal bowel function, no GI complaints. ID: SIRS/sepsis from intra-abdominal contamination continue antibioitcs per Dr. Briceño recommendations Prophylaxis: Protonix drip continued, Lovenox SCDs in place out of bed to chair with physical therapy PT/OT -ambulate with assist -Patient has intra-abdominal abscess/fluid collections. They are located in the subhepatic space and pelvis these are currently treated with antibiotics we will await radiologist opinion to see if these are amenable to percutaneous drainage however I feel that is unlikely given their position and as such I recommend continued antibiotic treatment per Dr. Sanchez's recommendations. If patient shows any signs of worsening clinical condition I have discussed the possibility of diagnostic laparoscopy and drainage of the abdominal fluid collections with the patient however he currently would prefer not to proceed with any surgical intervention and would like to course of antibiotics as he states he feels fine and continues to have no abdominal pain is tolerating diet well having normal bowel function. I do not see an urgent need for surgical intervention at this time however will remain vigilant and monitor patient's clinical condition if any signs of worsening occur we can revisit this at that time. - likely DC on antibiotcs in AM Physician Review: Patient Assessed, Agree with Above Assessment and Plan
--- NOTE | 2022-07-21 14:12 | P.PN ---
Subjective Date of Service: 07/21/22 Chief Complaint: s/p Marvin patch Patient denies any complaint. He has been tolerating diet. Leukocytosis almost resolved. Physical Examination - Vital Signs Temperature: 98 F Blood Pressure: 140/90 Pulse: 68 Respirations: 17 Pulse Ox (%): 100 Assessment And Plan - Plan Physical exam GEN: Alert, oriented, NAD HEENT: Normal conjunctiva, sclera anicteric. CV: sinus tachycardia, no edema. Pulm: Clear to auscultation bilaterally. No rhonchi or wheezes. ABD: Nontender; Abd binder, ALEXANDRU drain- serosanguinous fluid Neuro: Normal speech, normal affect Problem List sepsis secondary to Duodenal perforation, now s/p marvin patch h/o duodenal ulcer JENI, without CKD HTN Nicotine dependence h/o alcohol dependence and recreational drug use sepsis secondary to duodenal perforation Marked leukocytosis trending down after changing antibiotics to IV meropenem. Leukocytosis almost resolved s/p marvin patch by Dr. Stern on 07/09 NG tube removed, patient tolerating diet. PPN discontinued. Continue protonix drip Blood cultures have yielded no growth. CT abdomen and pelvis and chest 07/16 unremarkable. No abscess. Repeat CT 07/19 shows 3 intra-abdominal fluid collections suggesting abscesses. Patient has been clinically improving and without any symptoms. Surgery Dr. Stern is following and suggest conservative management with antibiotic since patient has responded well with significant clinical impr ovement. Dr. Stern recommend discharge in a.m. if he continues to improve and planning to follow patient in the office to reevaluate for need for drainage of the intra-abdominal fluid collections. Infectious disease to follow to assist with outpatient antibiotic. Continue IV meropenem and Flagyl Continue to monitor CBC to follow leukocytosis. Pain management as needed. JENI prerenal; due to decreased oral intake. JENI resolved. Alcohol/recreational drug use ecstasy and cannabis usage. No symptoms of alcohol withdrawal. HTN Hydralazine PRN On amlodipine VTE: lovenox Code: full Dispo: home upon discharge.
[2022-07-22] MEDS: Meropenem 1,000 MG in NA CHLORIDE 0.9% 100 ML IV SCH ×2 (00:17→09:11)
[2022-07-22] MEDS: METRONIDAZOLE 500mg IVPB 500 MG/100 ML BAG IV SCH ×2 (01:02→09:11)
[2022-07-22] MEDS: PANTOPRAZOLE INJ 80 MG in NA CHLORIDE 0.9% 250 ML IV SCH ×2 (01:04→09:00)
[2022-07-22] MEDS: HYDROMORPHONE HCL 2 MG/ML inj IV PRN ×2 (04:17→09:10)
[2022-07-22 04:24] VITALS: BP 137/80; TEMP 97.1
[2022-07-22 05:44] LABS: Absolute Lymphocytes (CBC) 1.5 K/uL (0.7-4.9); Hematocrit 28.8 % (39.6-49.0); Lymphocytes % 14.1 % (15.3-44.8); MCV 84.6 fL (80-100); MPV 7.4 fL (7.6-11.3)
[2022-07-22 07:57] LABS: Magnesium 2.1 mg/dL (1.6-2.4); Phosphorus 3.9 mg/dL (2.5-4.9)
[2022-07-22 08:04] LABS: Potassium 3.9 mmol/L (3.5-5.1)
[2022-07-22] MEDS: NICOTINE 21 MG/PAT TD SCH (09:00)
[2022-07-22] MEDS: FLUTICASONE 50MCG NASAL SPRAY NAS SCH (09:12)
[2022-07-22] MEDS: AMLODIPINE 5 MG TAB PO SCH (09:12)
[2022-07-22] MEDS: ENOXAPARIN 40 MG/0.4 ML SQ SCH (09:13)
[2022-07-22] MEDS: THIAMINE 200 MG/2 ML INJ IVP SCH (09:13)
--- NOTE | 2022-07-22 09:52 | P.PN ---
Subjective Date of Service: 07/22/22 Chief Complaint: s/p Marvin patch Patient lying in bed very pleasant and denied having any nausea, vomiting, diarrhea, or constipation. Not in cardiopulmonary distress. 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 07/09/22 16:11 Blood - Blood Anaerobic Blood Culture - Final 07/09/22 16:00 Blood - Blood Aerobic Blood Culture - Final No growth in 5 days. 07/09/22 16:00 Blood - Blood Anaerobic Blood Culture - Final No growth in 5 days. Assessment And Plan - Current Problems (Diagnosis) (1) sepsis secondary to duodenal perforation Status: Acute Plan: Cultures: 07/09 BC x 2: Negative Antibiotics: On IV Meropenem (07/19- ) and Flagyl (/10- ) WBC: 07/22: 10.9. Normal Recommendations: Continue IV antibiotics for total of 14 days of duration Can SWITCH to PO Ciprofloxacin and Flagyl for total of 14 days when discharge home - Plan - Sepsis secondary to duodenal perforation : Should have IV antibiotics for total of 14 days of duration. When discharge home, can switch to PO Coprofloxacin and Flagyl (for 14 days) - Severe protein calorie malnutrition - JENI - Alcohol - Recreational drug use - HTN ID will continuously monitor the patient's signs of infection with fever and WBC trends Case has been discussed with Dr. Peña N Physician Review: Patient Assessed, Agree with Above Assessment and Plan
[2022-07-22 10:09] VITALS: O2SAT 96
--- NOTE | 2022-07-22 11:26 | P.DS ---
Admission Date: 07/09/22 Discharge Date: 07/22/22 Disposition: ROUTINE DISCHARGE Discharge Condition: GOOD Reason for Admission: s/p Marvin patch Brief History of Present Illness: Patient is a 46-year-old male with a past medical history significant for hypertension, duodenal ulcer, drug abuse, nicotine dependence, alcohol abuse who presented with complaint of generalized abdominal pain that has been ongoing for 2 days. Patient rated pain as 10/10 and described pain as burning\pressure in quality. Patient reported associated abdominal distention, loss of appetite and nausea. Abdominal CT showed significant hemoperitoneum present along with a pneumoperitoneum. General surgery Dr. Stern was immediately contacted and patient admitted for further management. Hospital Course: Diagnosis sepsis secondary to Duodenal perforation, now s/p marvin patch h/o duodenal ulcer JENI, without CKD HTN Nicotine dependence h/o alcohol dependence and recreational drug use Patient admitted to the medical floor and the following medical problems addressed: sepsis secondary to duodenal perforation s/p marvin patch by Dr. Stern on 07/09 Had NG tube inserted and the ALEXANDRU drainage. Patient later placed on PPN for prolonged n.p.o. status He was also on Protonix drip. He had marked leukocytosis initially, blood cultures done did not show any growth. CT abdomen and pelvis and chest 07/16 unremarkable. No abscess. Repeat CT 07/19 shows 3 intra-abdominal fluid collections suggesting abscesses. Leukocytosis trended down with aggressive antibiotic therapy. Infectious disease recommended meropenem and Flagyl. Leukocytosis resolved. Patient has been clinically improving and without any symptoms. He has been tolerating solid diet. Surgery Dr. Stern has been following throughout his hospital stay and suggest conservative management with antibiotic since patient has responded well with significant clinical improvement. Case discussed with infectious disease who recommended oral Cipro and Flagyl for [address] Stern recommend patient to follow-up in the office to reevaluate for need for drainage of the intra-abdominal fluid collections. JENI prerenal; due to decreased oral intake. JENI resolved with IV hydration Alcohol/recreational drug use ecstasy and cannabis usage. No symptoms of alcohol withdrawal. HTN Hydralazine PRN Started on amlodipine. Vital Signs/Physical Exam: Temp Pulse Resp BP Pulse Ox 97.1 F 70 16 137/80 95 07/22/22 09:51 07/22/22 09:51 07/22/22 09:51 07/22/22 09:51 07/22/22 09:51 General: Alert, In no apparent distress HEENT: Mucous membr. moist/pink Neck: Supple, JVD not distended Respiratory: Clear to auscultation bilaterally, Dull Cardiovascular: Regular rate/rhythm, Normal S1 S2 Gastrointestinal: Normal bowel sounds, Other (Abdominal binder in place) Musculoskeletal: No swelling Integumentary: No rashes Neurological: Normal strength at 5/5 x4 extr Laboratory Data at Discharge: WBC 10.90 K/uL (4.3-10.9) 07/22/22 05:14 Hgb 9.7 g/dL (13.6-17.9) L 07/22/22 05:14 Hct 28.8 % (39.6-49.0) L 07/22/22 05:14 Plt Count 669 K/uL (152-406) H 07/22/22 05:14 Sodium 138 mmol/L (136-145) 07/22/22 07:23 Potassium 3.9 mmol/L (3.5-5.1) 07/22/22 07:23 BUN 12 mg/dL (7-18) 07/22/22 07:23 Creatinine 0.68 mg/dL (0.70-1.30) L 07/22/22 07:23 Glucose 96 mg/dL (74-106) 07/22/22 07:23 Phosphorus 3.9 mg/dL (2.5-4.9) 07/22/22 07:23 Magnesium 2.1 mg/dL (1.6-2.4) 07/22/22 07:23 Total Bilirubin 1.7 mg/dL (0.2-1.0) H 07/15/22 03:07 AST 21 U/L (15-37) 07/15/22 03:07 ALT 25 U/L (16-61) 07/15/22 03:07 Alkaline Phosphatase 46 U/L (45-117) 07/15/22 03:07 Lipase 310 U/L (73-393) 07/09/22 14:25 Home Medications: Amlodipine [Norvasc*] 5 mg PO DAILY #30 tab 07/22/22 Ciprofloxacin HCl [Cipro] 500 mg PO BID #28 tab 07/22/22 Fluticasone [Flonase 50MCG Nasal [place]*] 2 sprays EDWIN BID #1 btl 07/22/22 Pantoprazole Sodium [Protonix] 40 mg PO BID #60 tab 07/22/22 metroNIDAZOLE [Metronidazole] 500 mg PO TID #42 tab 07/22/22 New Medications: Ciprofloxacin HCl [Cipro] 500 mg PO BID #28 tab Fluticasone [Flonase 50MCG Nasal [place]*] 2 sprays EDWIN BID #1 btl metroNIDAZOLE [Metronidazole] 500 mg PO TID #42 tab Amlodipine [Norvasc*] 5 mg PO DAILY #30 tab Pantoprazole Sodium [Protonix] 40 mg PO BID #60 tab Diet: soft Activity: No lifting more than 10 lbs Followup: Clifford Stern MD [ACTIVE - CAN ADMIT] - 1 Week (Call for appointment.) NONE,NONE [Primary Care Provider] - 1-2 Weeks (Call for appointment.) Time spent managing pt's care (in minutes): 42
--- NOTE | 2022-07-23 18:04 | EKG ---
Test Date: 2022-07-09 Test Time: 14:08:13 Railroad Dispatcher: GROVER MEASUREMENT RESULTS: Intervals: Rate: 132 SC: 146 QRSD: 98 QT: 290 QTc: 429 [place]: P: 54 SC: 146 QRS: 4 T: -20 INTERPRETIVE STATEMENTS: Sinus tachycardia Voltage criteria for left ventricular hypertrophy T wave abnormality, consider inferior ischemia Abnormal ECG Compared to ECG 03/17/2019 07:56:52 Left ventricular hypertrophy now present T-wave abnormality now present Possible ischemia now present Sinus bradycardia no longer present Electronically Signed On 07-23-22 17:35:21 DYNO TECHNICIAN by Basilio Buckley
== END 2022-07-22 12:00 | disposition home or self-care (01) | DRG 853 ==
LOC: ER 13:34 → ERHOLD 17:52 → 3RD-ICU 17:55 → 4TH 07-12 16:10
PROVIDERS: ADMIT Hospitalist; ATTEND Hospitalist
PROC: 0DU907Z Supplement Duodenum with Autologous Tissue Substitute, Open Approach (ICD-10-PCS; principal; 2022-07-09 16:15)
DX: A41.9 Sepsis, unspecified organism (principal); E43 Unspecified severe protein-calorie malnutrition; K26.5 Chronic or unspecified duodenal ulcer with perforation; K66.1 Hemoperitoneum; K65.1 Peritoneal abscess; N17.9 Acute kidney failure, unspecified; K91.89 Other postprocedural complications and disorders of digestive system; K56.7 Ileus, unspecified; I10 Essential (primary) hypertension; F10.10 Alcohol abuse, uncomplicated; F12.10 Cannabis abuse, uncomplicated; F19.10 Other psychoactive substance abuse, uncomplicated; F17.210 Nicotine dependence, cigarettes, uncomplicated; E66.09 Other obesity due to excess calories; Z68.32 Body mass index [BMI] 32.0-32.9, adult; Z91.013 Allergy to seafood; Z79.899 Other long term (current) drug therapy; Z91.048 Other nonmedicinal substance allergy status; Z28.310 Unvaccinated for COVID-19; Z20.822 Contact with and (suspected) exposure to COVID-19; Y83.8 Other surgical procedures as the cause of abnormal reaction of the patient, or of later complication, without mention of misadventure at the time of the procedure
CPT/HCPCS: 36415; 71045; 71250; 74018; 74176; 74246; 80048; 80053; 80069; 82947; 83605; 83690; 83735; 84100; 84484; 85025; 85027; 86850; 86900; 86901; 87040; 87811; 93005; 94010; 94760; 97112; 97116; 97161; 97530; 99285; C9113; J0330; J0360; J1100; J1170; J1650; J2185; J2250; J2405; J2543; J2704; J2710; J3010; J3411; J3480; J7030; J7050; J7120